=== PATIENT | female | born 1955 | race Caucasian/White ===

== ENCOUNTER 2019-09-03 09:43 | Outpatient (CLI) | payer MEDICARE, SELFPAY ==
[2019-09-03 10:14] LABS: Basophils # 0.1 10^3/uL (0.0-0.1); Basophils % 0.6 %; Eosinophils # 0.3 10^3/uL (0.0-0.8); Eosinophils % 3.6 %; Hemoglobin 13.6 g/dL (11.5-15.3); Lymphocytes # 1.3 10^3/uL (0.8-4.8); Lymphocytes % 15.7 %; Mean Corpuscular HGB Conc 32.4 g/dL (30.0-36.0); Mean Corpuscular Hemoglobin 30.5 pg (28.0-34.0); Mean Corpuscular Volume 94.2 fL (81-99); Mean Platelet Volume 8.7 fL (7.4-10.4); Monocytes # 0.6 10^3/uL (0.2-0.9); Monocytes % 7.1 %; Neutrophils # 5.8 10^3/uL (1.8-7.7); Neutrophils % 72.7 %; Nucleated Red Blood Cells % 0 %; Platelet Count 344 10^3/cmm (130-400); Red Blood Count 4.46 10^6/uL (4.1-5.3); Red Cell Distribution Width 12.8 % (12.1-15.1)
[2019-09-03 10:32] LABS: Alanine Aminotransferase 13 U/L (0-33); Albumin Level 3.9 g/dL (3.5-5.2); Alkaline Phosphatase 195 IU/L (35-105); Anion Gap 19.8 (5-19); Aspartate Amino Transferase 25 U/L (0-32); Blood Urea Nitrogen 16 mg/dL (8-23); Calcium 10.1 mg/Dl (8.8-10.2); Carbon Dioxide 27 mmol/L (22-29); Chloride 100 mmol/L (98-107); Globulin 3.9 g/dL (1.3-4.6); Glomerular Filtration Rate 83.7 mL/min (90-130); Glucose 139 mg/dL (74-106); Potassium 3.8 mmol/L (3.5-5.1); Sodium 143 mmol/L (136-145); Total Bilirubin 0.2 mg/dL (0.15-1.2); Total Protein 7.8 g/dL (6.6-8.7)
--- NOTE | 2019-09-03 17:08 | ONC FU_ITS ---
Dr. Johnston follow up note Patient: Raúl Malagon Unit #: [id number]: [id number] Dicatated By: Ivon Johnston M.D.Date of Visit:Sep 03, 2019 Onc Med Follow-up/Prog Note History of Present Illness: Mr. 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, original site not clear but CT PET scan done at the time of diagnosis consistent with base of tongue/vallecula, with biopsy-proven lung metastases Whereas base of the tongue biopsy done on 04/19/2018 showed benign lymphoid tissue with reactive follicular hyperplasia, and benign squamous mucosa And right upper lobe lung biopsy done on 03/30/2018 showed poorly differentiated squamous cell carcinoma compatible with nonkeratinizing squamous carcinoma Left cervical lymph node FNA was done on 03/30/2018 showed non-small cell carcinoma In May 2018 she was started on combined chemoradiation, to the oropharynx and including left metastatic cervical lymph node. Initially with low-dose cisplatin/erbitux, but patient did develop erbitux reaction, requiring short hospital stay because of chest pain. At that time her chemotherapy was changed to single agent carboplatin concurrent with radiation therapy given on May 24, May 31 and 06/07/2018 Follow-up CT scan of the chest done on 09/05/2018 showed slow progression of pulmonary disease but patient was asymptomatic and she was offered single agent nivolumab on 09/07/2018, initially she was receiving every other week the later on changed to every month and last dose was given, as per patient in October [address] scan of chest done on 11/08/2018 showed mixed response as her right lung metastases was increasing in size, she was referred to radiation oncology, as per patient his CBC of 15 doses of radiation to her right chest in October 2018. And then in the December 2018 she moved to [facility] and Follow-up CT PET scan done on 02/23/2019 showed there are multiple bilateral malignant pulmonary nodules, predominantly in the upper lobes, representing active metastatic disease. Index right upper lobe nodule measuring 1.5 x 1.9 cm with SUV of 21 and index medial left upper lobe nodule measures 1.5 cm in diameter and has SUV of 17.3. No other abnormality seen Patient was recommended to continue with nivolumab , biweekly. But patient never came back as per patient she had transportation problem as she could not get new tag for her car and she was called and at that time our office was informed that she is not interested to continue immunotherapy rather prefer observation. Came for follow-up, complaining of left upper neck pain. But no ear discharge, no fever or chills, no trauma to her neck, no dysphagia, no nausea vomiting, no diarrhea constipation, no hemoptysis or hematemesis, appetite is good. Medications: Allergy Relief 1 (4 mg) Tablet Oral daily, Aspirin 1 Tablet (of 81 mg) Oral daily, Biotin 1 Capsule (of 1000 mg) Oral daily, Centrum Silver 50+Women 1 Tablet Oral daily, HYDROcodone-Acetaminophen 1 Tablet (of 10-325 mg) Oral t.i.d. PRN, Metoprolol Tartrate 1 Tablet (of 50 mg) Oral b.i.d., Sertraline HCl 1 Tablet (of 50 mg) Oral daily Allergies: Ampicillin, Cetuximab, Penicillins, and Sulfa Antibiotics. Review of Systems: Constitutional - Appetite is fair and weight has increased. No fever, chills, hot flashes, or night sweats. Energy level is poor, ENMT - Positive for sinus congestion/drainage. No mouth sores. No sore throat. Positive for difficulty swallowing, Hematologic/Lymphatic - No abnormal bruising or bleeding, Respiratory - No shortness of breath. No cough. No pleuritic pain or hemoptysis, Cardiovascular - Positive for chest pain and discomfort, Gastrointestinal - No nausea or vomiting. No heartburn or acid reflux. No diarrhea or constipation. No blood in the stool or black stools, Genitourinary (F) - Positive for incontinence and difficulty starting stream, Musculoskeletal - Positive for joint and neck. Pt states that Dr. Sánchez recently increased her pain medication but she does not notice much improvement, Neurologic - No headache. Positive for dizziness. No numbness/paresthesias or other focal neurologic symptoms, Psychiatric - Positive for depression and anxiety. Vital Signs: Performed on Sep 03, 2019 11:00 Height - 66.00 in Weight - 142.0 lbs (LOW) BSA - 1.73 sq.m BMI - 22.92 Temperature - 98.7 F Pulse - 65 /min Respiration - 18 /min BP - 110/66 mm(hg) O2 Sat - 97 % Pain - 6 Performance Status: 1 - No physically strenuous activity, but ambulatory and able to carry out light or sedentary work (e.g. office work, light house work). (ECOG) Physical Examination: ENMT - . No oral exudates, ulcers, masses, thrush or mucositis. Oropharynx clear. Tongue normal, Neck - Supple . No jugular venous distension, Respiratory - Lungs are clear to auscultation without rhonchi or wheezing.Mild tenderness in left upper neck but no definite swelling noted, Cardiovascular - Regular rate and rhythm of heart, Abdomen - Non-tender, non-distended, . Good bowel sounds. No guarding or rebound tenderness. No pulsatile masses, Extremities - no edema. Lab/Imaging: Test performed on Mar 08, 2019 08:58 Sodium 144 mmol/L Potassium 3.6 mmol/L Chloride 102 mmol/L CO2 30 mmol/L Anion Gap 15.6 BUN 8 mg/dL Creatinine 0.8 mg/dL Cr Clearance (Est) 72.39 mL/min eGFR 72.0 mL/min Glucose 139 mg/dl Calcium 9.2 mg/dL Protein, Total 7.4 g/dL Albumin 4.4 g/dL Globulin 3.0 gm/dL Bilirubin, Total 0.4 mg/dL ALT (SGPT) 7 U/L AST (SGOT) 20 U/L Alkaline Phosphatase 152 IU/L WBC 4.5 /cmm RBC 4.55 10 6/cmm HGB 14.2 g/dl HCT 41.2 % MCV 90.7 /cmm MCH 31.3 pg MCHC 34.5 g/dl RDW 13.9 % Platelet Count 258 10 3/cmm MPV 6.8 fl Neutrophils 2.7 10 3/cmm Lymphocytes 1.0 10 3/cmm Monocytes 0.4 10 3/cmm Eosinophils 0.3 10 3/cmm Basophils 0.0 10 3/cmm Neutrophil % 60.6 % Lymphocyte % 22.3 % Monocyte % 9.7 % Eosinophil % 6.6 % Basophils % 0.8 % Impression: 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 CT PET scan done the time of diagnosis in March 2018 consistent with disease from BOT/vallecule and biopsy from left anterior neck lymph node showed non-small cell carcinoma and biopsy of right upper lobe lung done on 03/30/2018 confirmed poorly differentiated squamous cell carcinoma Status post combined chemoradiation therapy to the oropharynx primary and left cervical metastatic lymph node, initially started on low-dose cisplatin/erbitux but erbitux was discontinued because of related allergic reaction requiring short hospital stay Later on switched to weekly carboplatin concurrent with radiation therapy on 05/24/2018, 05/31/2018 and 06/07/2018 and radiotherapy completed on 07/12/2018 CT scan of neck was done on 07/23/2018 showed left neck mass size is similar but too early to really to perry radiation impact and CT scan of chest showed multiple lung nodules largest being 2 cm size, stable with one new and 2 small enlarging nodules all less than 1 cm. Follow-up CT scan of chest done on 09/05/2018 showed slow progression of pulmonary disease, but patient remained asymptomatic at that time role of immunotherapy with nivolumab was discussed and patient agreed, she was started on every other week later on switched to every month, as per patient last dose was given in October that time her follow-up CT scan of chest done on 11/08/2018 showed mixed response e.g. enlargement of right lung metastases, as per patient she was referred to radiation oncology and she received 15 doses of radiation to right chest Follow-up CT PET scan done on 02/23/2019 showed there are multiple bilateral malignant pulmonary nodules, predominantly in the upper lobes, representing active metastatic disease. An index right upper lobe nodule measured 1.5 x 1.9 cm with SUV of 21, and index medial left upper lobe nodule measuring 1.5 cm in diameter has SUV of 17.3. 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 As per patient initially at the time of diagnosis she had similar symptoms. At this point we'll consider follow-up CT PET scan to assess disease status as patient did not follow our recommendations to continue with immunotherapy with nivolumab . Patient will return to clinic after this CT PET scan done. Signed By: Ivon Johnston M.D. <<Signature on File>>
== END 2019-09-03 09:44 | disposition home or self-care (01) ==
LOC: ONCMED 09:54
PROVIDERS: Family Provider Family Medicine; Visit Provider Internal Medicine Hematology & Oncology
DX: C01 Malignant neoplasm of base of tongue (principal); C78.01 Secondary malignant neoplasm of right lung; C78.02 Secondary malignant neoplasm of left lung; G89.3 Neoplasm related pain (acute) (chronic); J43.9 Emphysema, unspecified; F17.210 Nicotine dependence, cigarettes, uncomplicated; I25.10 Atherosclerotic heart disease of native coronary artery without angina pectoris; Z79.82 Long term (current) use of aspirin; Z79.891 Long term (current) use of opiate analgesic; Z92.3 Personal history of irradiation; Z92.21 Personal history of antineoplastic chemotherapy; Z95.5 Presence of coronary angioplasty implant and graft
CPT/HCPCS: 80053; 85025; G0463

== ENCOUNTER 2019-09-13 09:00 | Outpatient (CLI) | payer MEDICARE, SELFPAY ==
--- NOTE | 2019-09-13 09:10 | CT_ITS ---
WS: [id number] CT CHEST, ABDOMEN, AND PELVIS TECHNIQUE: Contrast-enhanced CT of the chest, abdomen, and pelvis with coronal and sagittal reformatt ed images. CLINICAL INFORMATION: METASTATIC HEAD NECK CANCER COMPARISON: CT chest November 08, 2018 and PET/CT February 23, 2019. CT chest abdomen September 05, 2018 DLP: 1130.[address] scans at [facility] use at least one of these dose optimization techniques: automat ed exposure control; mA and/or kV adjustment per patient size (includes targeted exams where dose is matched to clinical indication); or iterative reconstruction. CT CHEST: Numerous large metastatic nodules in both lungs progressed since the prior 2 examinations. Large placido edly progressed left upper lobe mass measuring 6.1 x 4.7 CM. Progressed left lower lobe nodule measur ing 3.1 x 2.6 cm compared to 8 mm previous. Large lobulated right upper lobe nodule today measures 4. 4 x 2.2 cm which has changed configuration. Large right upper partially cavitary nodule abutting the middle mediastinum has markedly progressed today measuring 4.1 x 2.6 cm. Additional large mass left upper lobe medially measuring 2.9 x 2.5 CM. Normal caliber thoracic aorta. Proximal main pulmonary arteries are normal. Prominent pretracheal lym ph node unchanged. No axillary lymphadenopathy. No hilar lymphadenopathy. CT ABDOMEN AND PELVIS: Liver is normal. Tiny low-attenuation lesion likely hepatic cyst. Portal vein and splenic vein are no rmal. Normal gallbladder. Normal spleen. Normal GE junction. Adrenal glands are normal. Normal renal parenchymal enhancement. Tiny renal cysts. Normal caliber abdominal aorta. Aortic calcification. Norm al sigmoid colon. Diverticulosis. No evidence of acute diverticulitis. No pelvic or inguinal lymphade nopathy. CT/CT chest abd pel w con* IMPRESSION: 1. Progressed metastatic disease in the chest with multiple enlarged intrapare nchymal pulmonary nodules. 2. Largest nodule in the left upper lobe measuring 4.7 x 6.2 cm. 3. Largest nodules in the right lung in the right upper lobe measuring 4.1 x 2 .6 cm and 2.2 x 4.4 CM. 4. No evidence of metastatic disease in the abdomen or pelvis. 5. Enlarged pretracheal lymph node unchanged.
[2019-09-13] MEDS: iohexol 300 mg/mL 50 mL Btl PO (09:29)
[2019-09-13] MEDS: iohexol 300 mg/mL 100 mL Btl 95 ML IV (11:04)
== END 2019-09-13 09:01 | disposition home or self-care (01) ==
LOC: CT 09:07
PROVIDERS: Family Provider Family Medicine; PCP Family Medicine; Visit Provider Internal Medicine Hematology & Oncology
DX: C76.0 Malignant neoplasm of head, face and neck (principal); R91.8 Other nonspecific abnormal finding of lung field; R59.9 Enlarged lymph nodes, unspecified
CPT/HCPCS: 71260; 74177

== ENCOUNTER 2019-09-17 13:51 | Outpatient (CLI) | payer MEDICARE, SELFPAY ==
[2019-09-17 14:45] LABS: Basophils # 0.1 10^3/uL (0.0-0.1); Basophils % 0.7 %; Eosinophils # 0.3 10^3/uL (0.0-0.8); Eosinophils % 4.5 %; Hematocrit 41.1 % (37.0-47.0); Lymphocytes # 2.1 10^3/uL (0.8-4.8); Mean Corpuscular HGB Conc 31.6 g/dL (30.0-36.0); Mean Corpuscular Hemoglobin 29.8 pg (28.0-34.0); Mean Corpuscular Volume 94.3 fL (81-99); Mean Platelet Volume 8.8 fL (7.4-10.4); Monocytes # 0.6 10^3/uL (0.2-0.9); Monocytes % 8.6 %; Neutrophils # 3.8 10^3/uL (1.8-7.7); Neutrophils % 55.1 %; Nucleated Red Blood Cells % 0 %; Platelet Count 404 10^3/cmm (130-400); Red Blood Count 4.36 10^6/uL (4.1-5.3); Red Cell Distribution Width 12.8 % (12.1-15.1); White Blood Count 6.9 10^3/uL (4.0-10.0)
[2019-09-17 15:09] LABS: Alanine Aminotransferase 15 U/L (0-33); Alkaline Phosphatase 193 IU/L (35-105); Aspartate Amino Transferase 27 U/L (0-32); Blood Urea Nitrogen 10 mg/dL (8-23); Calcium 9.7 mg/dL (8.5-10.5); Carbon Dioxide 28 mmol/L (22-29); Chloride 100 mmol/L (98-107); Sodium 142 mmol/L (136-145); Total Bilirubin 0.2 mg/dL (0.15-1.2)
[2019-09-18 08:55] LABS: Glucose 88 mg/dL (65-115)
== END 2019-09-17 13:52 | disposition home or self-care (01) ==
PROVIDERS: Family Provider Family Medicine; PCP Family Medicine; Visit Provider Internal Medicine Hematology & Oncology
DX: C01 Malignant neoplasm of base of tongue (principal); C77.0 Secondary and unspecified malignant neoplasm of lymph nodes of head, face and neck; C78.01 Secondary malignant neoplasm of right lung; C79.02 Secondary malignant neoplasm of left kidney and renal pelvis; J43.9 Emphysema, unspecified; I25.10 Atherosclerotic heart disease of native coronary artery without angina pectoris; F32.9 Major depressive disorder, single episode, unspecified; G89.3 Neoplasm related pain (acute) (chronic); F17.210 Nicotine dependence, cigarettes, uncomplicated; Z79.82 Long term (current) use of aspirin; Z79.891 Long term (current) use of opiate analgesic; Z92.21 Personal history of antineoplastic chemotherapy; Z92.3 Personal history of irradiation; Z92.25 Personal history of immunosuppression therapy
CPT/HCPCS: 80053; 85025; 99214

== ENCOUNTER 2019-09-27 10:26 | Outpatient (CLI) | payer MEDICARE, SELFPAY ==
--- NOTE | 2019-09-27 13:08 | ONC FU_ITS ---
Dr. Johnston follow up note Patient: Raúl Malagon Unit #: [id number]: [id number] Dicatated By: Ivon Johnston M.D.Date of Visit:Sep 27, 2019 Onc Med Follow-up/Prog Note History of Present Illness: Mr. 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, original site not clear but CT PET scan done at the time of diagnosis consistent with base of tongue/vallecula, with biopsy-proven lung metastases Whereas base of the tongue biopsy done on 04/19/2018 showed benign lymphoid tissue with reactive follicular hyperplasia, and benign squamous mucosa And right upper lobe lung biopsy done on 03/30/2018 showed poorly differentiated squamous cell carcinoma compatible with nonkeratinizing squamous carcinoma Left cervical lymph node FNA was done on 03/30/2018 showed non-small cell carcinoma In May 2018 she was started on combined chemoradiation, to the oropharynx and including left metastatic cervical lymph node. Initially with low-dose cisplatin/erbitux, but patient did develop erbitux reaction, requiring short hospital stay because of chest pain. At that time her chemotherapy was changed to single agent carboplatin concurrent with radiation therapy given on May 24, May 31 and 06/07/2018 Follow-up CT scan of the chest done on 09/05/2018 showed slow progression of pulmonary disease but patient was asymptomatic and she was offered single agent nivolumab on 09/07/2018, initially she was receiving every other week the later on changed to every month and last dose was given, as per patient in October [address] scan of chest done on 11/08/2018 showed mixed response as her right lung metastases was increasing in size, she was referred to radiation oncology, as per patient his CBC of 15 doses of radiation to her right chest in October 2018. And then in the December 2018 she moved to [facility] and Follow-up CT PET scan done on 02/23/2019 showed there are multiple bilateral malignant pulmonary nodules, predominantly in the upper lobes, representing active metastatic disease. Index right upper lobe nodule measuring 1.5 x 1.9 cm with SUV of 21 and index medial left upper lobe nodule measures 1.5 cm in diameter and has SUV of 17.3. No other abnormality seen Patient was recommended to continue with nivolumab , biweekly. But patient never came back as per patient she had transportation problem as she could not get new tag for her car and she was called and at that time our office was informed that she is not interested to continue immunotherapy rather prefer observation. Follow-up CT scan of chest abdomen pelvis was done on 09/13/2019 as insurance did not allow PET scan It showed numerous large metastatic nodules in both lungs progressed since prior examinations. Large markedly progressed left upper lobe mass measures 6.1 x 4.7 cm. Progressed left lower lobe nodule measuring 3.1 x 2.6 cm compared to 8 mm previously. Large lobulated right upper lobe nodule measures 4.4 x 2.2 cm. Large right upper lobe partially cavitating nodule abutting middle mediastinum has markedly progress size 4.1 x 2.6 cm. Additionally large left upper lobe medially measuring 2.9 x 2.5 cm. Liver is normal. No other changes seen and abdomen. Came for follow-up, denies any specific complaints, no fever or chills, no nausea vomiting no diarrhea constipation no hemoptysis or hematemesis. Medications: Allergy Relief 1 (4 mg) Tablet Oral daily, Aspirin 1 Tablet (of 81 mg) Oral daily, Biotin 1 Capsule (of 1000 mg) Oral daily, Centrum Silver 50+Women 1 Tablet Oral daily, HYDROcodone-Acetaminophen 1 Tablet (of 10-325 mg) Oral t.i.d. PRN, Metoprolol Tartrate 1 Tablet (of 50 mg) Oral b.i.d., Sertraline HCl 1 Tablet (of 50 mg) Oral daily Allergies: Ampicillin, Cetuximab, Penicillins, and Sulfa Antibiotics. Review of Systems: Constitutional - Appetite is fair and weight has increased. No fever, chills, hot flashes, or night sweats. Energy level is fair today, ENMT - No sinus congestion/drainage. No mouth sores. No sore throat. Positive for occassional difficulty swallowing, Hematologic/Lymphatic - No abnormal bruising or bleeding, Respiratory - No shortness of breath. No cough. No pleuritic pain or hemoptysis, Cardiovascular - Negative for chest pain and discomfort, Gastrointestinal - No nausea or vomiting. No heartburn or acid reflux. No diarrhea or constipation. No blood in the stool or black stools, Genitourinary (F) - Positive for incontinence and difficulty starting stream, Musculoskeletal - Positive for joint and neck. Pt states that Dr. Sánchez recently increased her pain medication but she does not notice much improvement, Neurologic - No headache. Positive for dizziness. No numbness/paresthesias or other focal neurologic symptoms, Psychiatric - Positive for depression and anxiety. Vital Signs: Performed on Sep 27, 2019 11:18 Height - 66.00 in Weight - 143.0 lbs (HIGH) BSA - 1.73 sq.m BMI - 23.08 Temperature - 98.0 F (LOW) Pulse - 62 /min Respiration - 20 /min BP - 122/67 mm(hg) O2 Sat - 98 % Pain - 6 Performance Status: 0 - Fully active, able to carry on all predisease activities without restrictions. (ECOG) Physical Examination: ENMT - No oral exudates, ulcers, masses, thrush or mucositis. Oropharynx clear. Tongue normal, Respiratory - Lungs are clear to auscultation without rhonchi or wheezing, Cardiovascular - Regular rate and rhythm of heart, Abdomen - Non-tender, non-distended, Good bowel sounds. No guarding or rebound tenderness. No pulsatile masses, Extremities - no edema. Lab/Imaging: Test performed on Sep 17, 2019 14:00 Sodium 142 mmol/L Potassium 4.0 mmol/L Chloride 100 mmol/L CO2 28 mmol/L Anion Gap 18.0 BUN 10 mg/dL Creatinine 0.6 mg/dL Cr Clearance (Est) 93.7800 mL/min eGFR 100.0 mL/min Glucose 88 mg/dL Calcium 9.7 mg/dL Protein, Total 8.0 g/dL Albumin 4.0 g/dL Globulin 4.0 g/dL Bilirubin, Total 0.2 mg/dL ALT (SGPT) 15 U/L AST (SGOT) 27 U/L Alkaline Phosphatase 193 IU/L WBC 6.9 10 3/uL RBC 4.36 10 6/uL HGB 13.0 g/dL HCT 41.1 % MCV 94.3 fL MCH 29.8 pg MCHC 31.6 g/dL RDW 12.8 % Platelet Count 404 10 3/cmm MPV 8.8 fL Neutrophils 3.8 10 3/uL Lymphocytes 2.1 10 3/uL Monocytes 0.6 10 3/uL Eosinophils 0.3 10 3/uL Basophils 0.1 10 3/uL Neutrophil % 55.1 % Lymphocyte % 31.0 % Monocyte % 8.6 % Eosinophil % 4.5 % Basophils % 0.7 % Impression: 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 CT PET scan done the time of diagnosis in March 2018 consistent with disease from BOT/vallecule and biopsy from left anterior neck lymph node showed non-small cell carcinoma and biopsy of right upper lobe lung done on 03/30/2018 confirmed poorly differentiated squamous cell carcinoma Status post combined chemoradiation therapy to the oropharynx primary and left cervical metastatic lymph node, initially started on low-dose cisplatin/erbitux but erbitux was discontinued because of related allergic reaction requiring short hospital stay Later on switched to weekly carboplatin concurrent with radiation therapy on 05/24/2018, 05/31/2018 and 06/07/2018 and radiotherapy completed on 07/12/2018 CT scan of neck was done on 07/23/2018 showed left neck mass size is similar but too early to really to perry radiation impact and CT scan of chest showed multiple lung nodules largest being 2 cm size, stable with one new and 2 small enlarging nodules all less than 1 cm. Follow-up CT scan of chest done on 09/05/2018 showed slow progression of pulmonary disease, but patient remained asymptomatic at that time role of immunotherapy with nivolumab was discussed and patient agreed, she was started on every other week later on switched to every month, as per patient last dose was given in October that time her follow-up CT scan of chest done on 11/08/2018 showed mixed response e.g. enlargement of right lung metastases, as per patient she was referred to radiation oncology and she received 15 doses of radiation to right chest Follow-up CT PET scan done on 02/23/2019 showed there are multiple bilateral malignant pulmonary nodules, predominantly in the upper lobes, representing active metastatic disease. An index right upper lobe nodule measured 1.5 x 1.9 cm with SUV of 21, and index medial left upper lobe nodule measuring 1.5 cm in diameter has SUV of 17.3. 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 So other option was to consider another immunotherapy drug pembrolizumab but not sufficient data to prove whether it is effective if patient progressed done another immunotherapy. Third option was considering chemotherapy plus immunotherapy e.g. pembrolizumab plus carboplatin/5-FU or Taxol but patient is reluctant to consider multiple drugs because of her past experience with the chemotherapy. And the last option was considered chemotherapy alone doublet versus single agent but patient agreed for single agent so we will consider Abraxane 100 mg weekly day 1, 8 and 15 and repeat 28 days plan to give [address] PET scan if this is response then continue if stable disease then add pembrolizumab. All the side effect possible benefits associated with Abraxane including but not limited to bone marrow suppression, nausea vomiting, hair loss were discussed further teaching will be done by chemotherapy nurse. We'll obtain approval from her insurance prior to the treatment and then patient will return to clinic 1 week after chemotherapy is initiated with CBC CMP Signed By: Ivon Johnston M.D. <<Signature on File>>
== END 2019-09-27 10:27 | disposition home or self-care (01) ==
LOC: ONCMED 10:28
PROVIDERS: Family Provider Family Medicine; PCP Family Medicine; Visit Provider Internal Medicine Hematology & Oncology
DX: C01 Malignant neoplasm of base of tongue (principal); C78.01 Secondary malignant neoplasm of right lung; C77.0 Secondary and unspecified malignant neoplasm of lymph nodes of head, face and neck; C78.02 Secondary malignant neoplasm of left lung; J43.9 Emphysema, unspecified; F17.210 Nicotine dependence, cigarettes, uncomplicated; I25.10 Atherosclerotic heart disease of native coronary artery without angina pectoris; Z95.5 Presence of coronary angioplasty implant and graft; F32.9 Major depressive disorder, single episode, unspecified; G89.3 Neoplasm related pain (acute) (chronic); Z79.891 Long term (current) use of opiate analgesic; Z79.82 Long term (current) use of aspirin; Z92.3 Personal history of irradiation; Z92.25 Personal history of immunosuppression therapy
CPT/HCPCS: 99214

== ENCOUNTER 2019-10-07 05:21 | Outpatient (RCR) | payer MEDICARE, SELFPAY ==
[2019-10-04 14:41] LABS: Basophils % 0.7 %; Eosinophils # 0.3 10^3/uL (0.0-0.8); Eosinophils % 5.1 %; Hematocrit 39.9 % (37.0-47.0); Hemoglobin 12.3 g/dL (11.5-15.3); Lymphocytes # 1.4 10^3/uL (0.8-4.8); Lymphocytes % 24.7 %; Mean Corpuscular HGB Conc 30.8 g/dL (30.0-36.0); Mean Corpuscular Hemoglobin 29.4 pg (28.0-34.0); Mean Corpuscular Volume 95.2 fL (81-99); Mean Platelet Volume 9.3 fL (7.4-10.4); Monocytes # 0.4 10^3/uL (0.2-0.9); Monocytes % 7.6 %; Neutrophils # 3.4 10^3/uL (1.8-7.7); Neutrophils % 61.5 %; Nucleated Red Blood Cells % 0 %; Platelet Count 357 10^3/cmm (130-400); Red Blood Count 4.19 10^6/uL (4.1-5.3); White Blood Count 5.5 10^3/uL (4.0-10.0)
[2019-10-04 15:17] LABS: Alanine Aminotransferase 11 U/L (0-33); Albumin Level 3.6 g/dL (3.5-5.2); Alkaline Phosphatase 183 IU/L (35-105); Anion Gap 17.3 (5-19); Aspartate Amino Transferase 24 U/L (0-32); Blood Urea Nitrogen 12 mg/dL (8-23); Calcium 9.9 mg/dL (8.5-10.5); Carbon Dioxide 28 mmol/L (22-29); Chloride 100 mmol/L (98-107); Glucose 182 mg/dL (65-115); Potassium 4.3 mmol/L (3.5-5.1); Sodium 141 mmol/L (136-145); Total Bilirubin 0.2 mg/dL (0.15-1.2); Total Protein 7.6 g/dL (6.6-8.7)
== END 2019-10-12 23:59 | disposition home or self-care (01) ==
LOC: ONCMED 05:21
PROVIDERS: Family Provider Family Medicine; PCP Family Medicine; Visit Provider Internal Medicine Hematology & Oncology
DX: Z51.11 Encounter for antineoplastic chemotherapy (principal); C76.0 Malignant neoplasm of head, face and neck
CPT/HCPCS: 80053; 85025; 96367; 96413; J1100; J1200; J1453; J2469; J3490; J9264

== ENCOUNTER 2019-11-06 05:42 | Outpatient (RCR) | payer MEDICARE, SELFPAY ==
[2019-10-14 12:23] LABS: Basophils % 0.2 %; Eosinophils # 0.3 10^3/uL (0.0-0.8); Eosinophils % 5.8 %; Hematocrit 37.9 % (37.0-47.0); Lymphocytes # 1.2 10^3/uL (0.8-4.8); Lymphocytes % 22.1 %; Mean Corpuscular HGB Conc 31.7 g/dL (30.0-36.0); Mean Corpuscular Hemoglobin 28.5 pg (28.0-34.0); Mean Platelet Volume 8.6 fL (7.4-10.4); Monocytes # 0.3 10^3/uL (0.2-0.9); Neutrophils # 3.5 10^3/uL (1.8-7.7); Neutrophils % 65.5 %; Nucleated Red Blood Cells % 0 %; Platelet Count 332 10^3/cmm (130-400); Red Blood Count 4.21 10^6/uL (4.1-5.3); Red Cell Distribution Width 13.1 % (12.1-15.1); White Blood Count 5.3 10^3/uL (4.0-10.0)
[2019-10-14 13:17] LABS: Alanine Aminotransferase 10 U/L (0-33); Albumin Level 3.9 g/dL (3.5-5.2); Alkaline Phosphatase 165 IU/L (35-105); Anion Gap 16.1 (5-19); Aspartate Amino Transferase 17 U/L (0-32); Blood Urea Nitrogen 7 mg/dL (8-23); Calcium 9.6 mg/dL (8.5-10.5); Carbon Dioxide 26 mmol/L (22-29); Chloride 101 mmol/L (98-107); Globulin 3.2 g/dL (1.3-4.6); Glucose 209 mg/dL (65-115); Potassium 4.1 mmol/L (3.5-5.1); Sodium 139 mmol/L (136-145); Total Bilirubin 0.3 mg/dL (0.15-1.2); Total Protein 7.1 g/dL (6.6-8.7)
[2019-10-14] MEDS: sodium chloride 0.9% 250 ML 75 ML IV (14:40)
--- NOTE | 2019-10-19 17:48 | ONC FU_ITS ---
[facility] Patient Note Patient: Raúl Malagon Unit #: [id number]: [id number] Dictated By: Padma AndresDate of Visit: Oct 14, 2019 Onc MED Follow-Up/Prog Note Chief Complaint: Metastatic head and neck cancer with metastases to the lungs (biopsy-proven) History of Present Illness: Mrs. 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 Whereas base of the tongue biopsy done on 04/19/2018 showed benign lymphoid tissue with reactive follicular hyperplasia, and benign squamous mucosa And right upper lobe lung biopsy done on 03/30/2018 showed poorly differentiated squamous cell carcinoma compatible with nonkeratinizing squamous carcinoma Left cervical lymph node FNA was done on 03/30/2018 showed non-small cell carcinoma In May 2018, she was started on combined chemoradiation, to the oropharynx and including left metastatic cervical lymph node. Initially with low-dose cisplatin/erbitux, but patient did develop erbitux reaction, requiring short hospital stay because of chest pain. At that time her chemotherapy was changed to single agent carboplatin concurrent with radiation therapy given on May 24, May 31 and 06/07/2018 Follow-up CT scan of the chest done on 09/05/2018 showed slow progression of pulmonary disease but patient was asymptomatic and she was offered single agent nivolumab on 09/07/2018, initially she was receiving every other week the later on changed to every month and last dose was given, as per patient in October [address] scan of chest done on 11/08/2018 showed mixed response as her right lung metastases was increasing in size, she was referred to radiation oncology. She completed 15 doses of radiation to her right chest in October 2018. In December 2018 she moved to [facility] and Follow-up CT PET scan done on 02/23/2019 showed there are multiple bilateral malignant pulmonary nodules, predominantly in the upper lobes, representing active metastatic disease. Index right upper lobe nodule measuring 1.5 x 1.9 cm with SUV of 21 and index medial left upper lobe nodule measures 1.5 cm in diameter and has SUV of 17.3. No other abnormality seen Patient was recommended to continue with nivolumab , biweekly. But patient never came back as per patient she had transportation problem as she could not get new tag for her car and she was called and at that time our office was informed that she is not interested to continue immunotherapy rather prefer observation. Follow-up CT scan of chest abdomen pelvis was done on 09/13/2019 as insurance did not allow PET scan. It showed numerous large metastatic nodules in both lungs progressed since prior examinations. Large markedly progressed left upper lobe mass measures 6.1 x 4.7 cm. Progressed left lower lobe nodule measuring 3.1 x 2.6 cm compared to 8 mm previously. Large lobulated right upper lobe nodule measures 4.4 x 2.2 cm. Large right upper lobe partially cavitating nodule abutting middle mediastinum has markedly progress size 4.1 x 2.6 cm. Additionally large left upper lobe medially measuring 2.9 x 2.5 cm. Liver is normal. No other changes seen and abdomen. Ms. Malagon is here today for follow-up. She is due for week 2 Abraxane. She states overall she feels that she is doing pretty good. She has had some pain in her right side that feels sharp and poking at times. She states she had an episode of a frontal headache with some double vision but that has resolved. It occurred once. She has had no further recurrence of the headache. She states her appetite is fair. She has had no fever or chills. She denies any mouth sores sore throat or difficulty swallowing. She did have a urinalysis on Monday at [facility] and has not heard results on that. She was having UTI symptoms which are still there. She states this frequency and burning. She has not noted any hematuria. She denies any peripheral neuropathy. She states her activity is down a little for her but overall she feels good and can do all of her ADLs without assistance. She denies any diarrhea or constipation. She has had no lower extremity edema. Her ECOG is 1. Past Medical History: Chronic obstructive pulmonary disease Coronary artery disease Depression Past Surgical History: Abdominal exploratory laparotomy Appendectomy Cardiac stent Colonoscopy - 2014 Port placement Repair of right toes Right eardrum repair Tonsillectomy Left base/midline tongue biopsy in 2018 - benign Right upper lobe lung biopsy/left neck lymph node fna in 2018 Allergies: Ampicillin, Cetuximab, Penicillins, and Sulfa Antibiotics. Medications: Allergy Relief 1 (4 mg) Tablet Oral daily Aspirin 1 Tablet (of 81 mg) Oral daily Biotin 1 Capsule (of 1000 mg) Oral daily Centrum Silver 50+Women 1 Tablet Oral daily HYDROcodone-Acetaminophen 1 Tablet (of 10-325 mg) Oral t.i.d. PRN Metoprolol Tartrate 1 Tablet (of 50 mg) Oral b.i.d. Sertraline HCl 1 Tablet (of 50 mg) Oral daily Family History: Ms. Malagon's mother at age 78: heart disease. Ms. Malagon's father at age 78: lung cancer, and prostate cancer, and heart disease. Ms. Malagon has 2 brothers: 2 . Ms. Malagon's first brother's agent orange. Another brother's esophageal cancer, and agent orange, and lung cancer. Social History: Ms. Malagon is and she is retired. She is a daily smoker who has smoked 0.5 packs/day for 47 years. Ms. Malagon reports contact with the following hazardous materials: asbestos. She has indicated exposure to the following products: cigarettes. Ms. Malagon reports the following support systems: lives with spouse, significant other, family, or friends, lives in own house, supportive family/friends willing to assist with needs, and adequate transportation available for expected visits. Her diet consists of regular meals. She indicates her activity level as: daily activities. quit smoking in 2005, restarted in 2016. Review Of Symptoms: Genitourinary (F) urinary frequency and burning for 5-6 days. She denies any hematuria. She has had no fever or chills. Integumentary Denies chronic rashes, inflammation, ulcerations or skin changes. Constitutional Denies fevers, chills, night sweats, excessive fatigue or weight loss. Headache after last treatment-gone now. See Above. Eyes Denies significant visual changes. No diplopia. No amaurosis. ENMT Denies changes in hearing, sore throat, mouth sores, difficulty or changes in swallowing ability, and/or sinus drainage. Endocrine No diabetes, thyroid disease or hormone replacement. Denies hot flashes or night sweats. Hematologic/Lymphatic Denies easy bruising or bleeding. The patient denies any tender or palpable lymph nodes. Respiratory Denies dyspnea on exertion, chest pain, cough or hemoptysis. Denies orthopnea. Cardiovascular Denies anginal chest pain, palpitations or orthopnea. Gastrointestinal Denies nausea, vomiting, diarrhea, GI bleeding, or constipation. Denies change in bowel habits and/or stool color, no heartburn or early satiety. Musculoskeletal Denies joint pain, swelling or redness. No decreased range of motion. Neurologic Denies headache, blurred vision, and no areas of focal weakness or numbness. Normal gait. No sensory problems. Psychiatric Denies insomnia, depression, lit or mood swings. Vital Signs: Performed on Oct 14, 2019 13:48 Height - 66.00 in Weight - 142.4 lbs (LOW) BSA - 1.73 sq.m BMI - 22.98 Temperature - 98.0 F (LOW) Pulse - 85 /min Respiration - 17 /min BP - 110/60 mm(hg) O2 Sat - 94 % (LOW) Pain - 6,1 - No physically strenuous activity, but ambulatory and able to carry out light or sedentary work (e.g. office work, light house work). (ECOG) Physical Examination: Constitutional Alert, oriented, no acute distress. Skin pink, warm and dry. Head Normocephalic; atraumatic. Eyes Conjunctivae and sclerae are clear and without icterus. Pupils are reactive and equal. ENMT No oral exudates, ulcers, masses, thrush or mucositis. Oropharynx clear. Tongue normal. Neck Supple without masses or thyromegaly. No jugular venous distension. Hematologic/Lymphatic No petechiae or purpura. No tender or palpable lymph nodes in the cervical or supraclavicular areas. Respiratory Lungs are clear to auscultation without rhonchi or wheezing. Cardiovascular Regular rate and rhythm of heart without murmurs,clicks, gallops or rubs. Abdomen Non-tender, non-distended, no masses or ascites. Good bowel sounds noted in all quads. No guarding or rebound tenderness. No pulsatile masses. Back/Spine Non-tender to palpation. Extremities No visible deformities, no cyanosis, clubbing or edema. Musculoskeletal No tenderness or swelling, normal range of motion without obvious weakness. Integumentary No rashes or lesions. Neurologic No sensory or motor deficits, normal cerebellar function, normal gait. Psychiatric Alert and oriented times three. Coherent speech. Verbalizes understanding of our discussions today. Laboratory:Test performed on Oct 14, 2019 12:10 Sodium 139 mmol/L Potassium 4.1 mmol/L Chloride 101 mmol/L CO2 26 mmol/L Anion Gap 16.1 BUN 7 mg/dL Creatinine 0.6 mg/dL Cr Clearance (Est) 94.4400 mL/min eGFR 100.0 mL/min Glucose 209 mg/dL Calcium 9.6 mg/dL Protein, Total 7.1 g/dL Albumin 3.9 g/dL Globulin 3.2 g/dL Bilirubin, Total 0.3 mg/dL ALT (SGPT) 10 U/L AST (SGOT) 17 U/L Alkaline Phosphatase 165 IU/L WBC 5.3 10 3/uL RBC 4.21 10 6/uL HGB 12.0 g/dL HCT 37.9 % MCV 90.0 fL MCH 28.5 pg MCHC 31.7 g/dL RDW 13.1 % Platelet Count 332 10 3/cmm MPV 8.6 fL Neutrophils 3.5 10 3/uL Lymphocytes 1.2 10 3/uL Monocytes 0.3 10 3/uL Eosinophils 0.3 10 3/uL Basophils 0.0 10 3/uL Neutrophil % 65.5 % Lymphocyte % 22.1 % Monocyte % 6.0 % Eosinophil % 5.8 % Basophils % 0.2 % Impression: 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 CT PET scan done the time of diagnosis in March 2018 consistent with disease from BOT/vallecule and biopsy from left anterior neck lymph node showed non-small cell carcinoma and biopsy of right upper lobe lung done on 03/30/2018 confirmed poorly differentiated squamous cell carcinoma Status post combined chemoradiation therapy to the oropharynx primary and left cervical metastatic lymph node, initially started on low-dose cisplatin/erbitux but erbitux was discontinued because of related allergic reaction requiring short hospital stay Later on switched to weekly carboplatin concurrent with radiation therapy on 05/24/2018, 05/31/2018 and 06/07/2018 and radiotherapy completed on 07/12/2018 CT scan of neck was done on 07/23/2018 showed left neck mass size is similar but too early to really to perry radiation impact and CT scan of chest showed multiple lung nodules largest being 2 cm size, stable with one new and 2 small enlarging nodules all less than 1 cm[address] Follow-up CT scan of chest done on 09/05/2018 showed slow progression of pulmonary disease, but patient remained asymptomatic at that time role of immunotherapy with nivolumab was discussed and patient agreed, she was started on every other week later on switched to every month, as per patient last dose was given in October that time her follow-up CT scan of chest done on 11/08/2018 showed mixed response e.g. enlargement of right lung metastases, as per patient she was referred to radiation oncology and she received 15 doses of radiation to right chest Follow-up CT PET scan done on 02/23/2019 showed there are multiple bilateral malignant pulmonary nodules, predominantly in the upper lobes, representing active metastatic disease. An index right upper lobe nodule measured 1.5 x 1.9 cm with SUV of 21, and index medial left upper lobe nodule measuring 1.5 cm in diameter has SUV of 17.3. 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 Treatment options include either: continue with nivolumab ( but concerning as her initial scan after she was started on nivolumab showed mixed response and then patient continued immunotherapy for some time and then stopped on her own more than 6 months ago). Another option was to consider another immunotherapy drug pembrolizumab but not sufficient data to prove whether it is effective if patient progressed done another immunotherapy. The third option was consider chemotherapy plus immunotherapy e.g. pembrolizumab plus carboplatin/5-FU or Taxol but patient is reluctant to consider multiple drugs because of her past experience with the chemotherapy. The last option considered was chemotherapy alone- doublet versus single agent but patient agreed for single agent so we will consider Abraxane 100 mg weekly day 1, 8 and 15 and repeat 28 days. The current plan is to give [address] PET scan if this is response then continue if stable disease then add pembrolizumab. Plan: 1. Proceed with cycle 1 day 8 Abraxane. 2. Steroid compliance confirmed. 3. Continue current antiemetics as they seem to be working well. 4. Labs from today were reviewed in detail and discussed with Ms. Jose G napoles and a copy was given to her. WBC 5.3, hemoglobin 12.0, platelets 332,000, neutrophils 3500. Creatinine 0.9. Glucose 209 alk phos is improved at 165. 5. We will send in a prescription for Macrobid 100 mg twice daily for 5 days for abnormal UA from [facility]. 6. Mrs. Vesna Ocasio will return in 1 week with CBC CMP for consideration of day 15 of cycle 1. I did request a follow-up to do a for evaluation of her UTI. 7. She was instructed to contact us in interim should questions or problems arise. 8. We will monitor her headache to see if it reoccurs after today. It is possible that it could be the Aloxi we are using for premed for antiemetics. She will let us know if it reoccurs. Signed By: Padma Andres-, AOCNP Ivon Johnston MD <<Signature on File>>
[2019-10-21 11:54] LABS: Basophils % 0.7 %; Eosinophils # 0.4 10^3/uL (0.0-0.8); Eosinophils % 8.4 %; Hematocrit 37.9 % (37.0-47.0); Hemoglobin 11.8 g/dL (11.5-15.3); Lymphocytes # 1.2 10^3/uL (0.8-4.8); Mean Corpuscular HGB Conc 31.1 g/dL (30.0-36.0); Mean Corpuscular Hemoglobin 28.5 pg (28.0-34.0); Mean Corpuscular Volume 91.5 fL (81-99); Mean Platelet Volume 8.9 fL (7.4-10.4); Monocytes # 0.4 10^3/uL (0.2-0.9); Neutrophils # 2.5 10^3/uL (1.8-7.7); Neutrophils % 55.4 %; Nucleated Red Blood Cells % 0 %; Platelet Count 297 10^3/cmm (130-400); Red Blood Count 4.14 10^6/uL (4.1-5.3); Red Cell Distribution Width 13.4 % (12.1-15.1); White Blood Count 4.4 10^3/uL (4.0-10.0)
[2019-10-21 12:16] LABS: Alanine Aminotransferase 10 U/L (0-33); Albumin Level 3.6 g/dL (3.5-5.2); Alkaline Phosphatase 154 IU/L (35-105); Aspartate Amino Transferase 17 U/L (0-32); Blood Urea Nitrogen 8 mg/dL (8-23); Calcium 9.4 mg/dL (8.5-10.5); Carbon Dioxide 26 mmol/L (22-29); Chloride 100 mmol/L (98-107); Globulin 3.5 g/dL (1.3-4.6); Glomerular Filtration Rate 83.7 mL/min (90-130); Glucose 167 mg/dL (65-115); Osmolality Calculated 290 mOsm/kg (285-295); Sodium 140 mmol/L (136-145); Total Bilirubin 0.2 mg/dL (0.15-1.2); Total Protein 7.1 g/dL (6.6-8.7)
[2019-10-21 12:18] LABS: Add Urine Microscopic? YES; Bilirubin Urine Neg (NEGATIVE); Blood Urine Neg (Negative); Glucose Urine UA Norm (Normal); Ketones Urine Negative (Negative); Leukocyte Esterase Urine Trace (Negative); Nitrate Urine Negative (Negative); Protein Urine Neg (Negative); Specific Gravity, Urine 1.015 (1.005-1.030); Urine Appearance Clear (CLEAR); Urine Color Yellow (Yellow); Urobilinogen Urine Norm (Negative); pH Urine 6.5 (5-7)
[2019-10-21 12:22] LABS: Add Urine Culture? No; Bacteria Urine 1+; Hyaline Casts Urine 0-4; Squamous Epithelial Cell Urine 0-4 (0-5); WBC Urine 0-4 /hpf (0-5)
[2019-10-21] MEDS: pantoprazole 40 mg SDV IV (14:14)
[2019-10-21] MEDS: sodium chloride 0.9% 250 ML 1414 ML IV (14:14)
--- NOTE | 2019-10-21 21:36 | ONC FU_ITS ---
[facility] Patient Note Patient: Raúl Malagon Unit #: [id number]: [id number] Dictated By: Padma AndresDate of Visit: Oct 21, 2019 Onc MED Follow-Up/Prog Note Chief Complaint: Metastatic head and neck cancer with metastases to the lungs (biopsy-proven) History of Present Illness: Mrs. 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 Whereas base of the tongue biopsy done on 04/19/2018 showed benign lymphoid tissue with reactive follicular hyperplasia, and benign squamous mucosa And right upper lobe lung biopsy done on 03/30/2018 showed poorly differentiated squamous cell carcinoma compatible with nonkeratinizing squamous carcinoma Left cervical lymph node FNA was done on 03/30/2018 showed non-small cell carcinoma In May 2018, she was started on combined chemoradiation, to the oropharynx and including left metastatic cervical lymph node. Initially with low-dose cisplatin/erbitux, but patient did develop erbitux reaction, requiring short hospital stay because of chest pain. At that time her chemotherapy was changed to single agent carboplatin concurrent with radiation therapy given on May 24, May 31 and 06/07/2018 Follow-up CT scan of the chest done on 09/05/2018 showed slow progression of pulmonary disease but patient was asymptomatic and she was offered single agent nivolumab on 09/07/2018, initially she was receiving every other week the later on changed to every month and last dose was given, as per patient in October [address] scan of chest done on 11/08/2018 showed mixed response as her right lung metastases was increasing in size, she was referred to radiation oncology. She completed 15 doses of radiation to her right chest in October 2018. In December 2018 she moved to [facility]. Follow-up CT PET scan done on 02/23/2019 showed there are multiple bilateral malignant pulmonary nodules, predominantly in the upper lobes, representing active metastatic disease. Index right upper lobe nodule measuring 1.5 x 1.9 cm with SUV of 21 and index medial left upper lobe nodule measures 1.5 cm in diameter and has SUV of 17.3. No other abnormality seen It was recommended that Mrs Lopez continue with nivolumab , biweekly. But patient never came back- as per patient she had transportation problem as she could not get new tag for her car and she was called and at that time our office was informed that she is not interested to continue immunotherapy but preferred observation. She following did come for follow-up on September 03, 2019 at which time she was seen by Dr. Johnston. Follow-up CT scan of chest abdomen pelvis was done on 09/13/2019 as insurance did not allow PET scan. It showed numerous large metastatic nodules in both lungs progressed since prior examinations. Large markedly progressed left upper lobe mass measures 6.1 x 4.7 cm. Progressed left lower lobe nodule measuring 3.1 x 2.6 cm compared to 8 mm previously. Large lobulated right upper lobe nodule measures 4.4 x 2.2 cm. Large right upper lobe partially cavitating nodule abutting middle mediastinum has markedly progress size 4.1 x 2.6 cm. Additionally large left upper lobe medially measuring 2.9 x 2.5 cm. Liver is normal. No other changes seen and abdomen. Ms. Malagon is here today for follow-up. She is due for week cycle 1 day 15 Abraxane. She states overall she feels that she is doing pretty good. She has had some urinary frequency and burning. She has had interimttent nausea but no vomiting. She states it started a night or so after last weeks treatment. She denies any diarrhea since Monday. She did take a Lomotil at that time and that stopped the diarrhea. She does admit to having some acid reflux symptoms. She is had some heartburns and occasionally does take some Tums and that relieves it well. She has not taken any agents daily. She states has had some abdominal discomfort like it is just sore in her lower abdominal area and all quads. She denies any new pain. She has had some intermittent diarrhea as mentioned above but is been controlled. She denies any hematochezia. She denies any fever or chills. She states she has had some mild tenderness. 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 She states her appetite is fair. She denies any peripheral neuropathy. She states her activity is down a little for her but overall she feels good and can do all of her ADLs without assistance. She has had no lower extremity edema. Her ECOG is 1. Past Medical History: Chronic obstructive pulmonary disease Coronary artery disease Depression Past Surgical History: Abdominal exploratory laparotomy Appendectomy Cardiac stent Colonoscopy - 2014 Port placement Repair of right toes Right eardrum repair Tonsillectomy Left base/midline tongue biopsy in 2018 - benign Right upper lobe lung biopsy/left neck lymph node fna in 2018 Allergies: Ampicillin, Cetuximab, Penicillins, and Sulfa Antibiotics. Medications: Allergy Relief 1 (4 mg) Tablet Oral daily Aspirin 1 Tablet (of 81 mg) Oral daily Biotin 1 Capsule (of 1000 mg) Oral daily Centrum Silver 50+Women 1 Tablet Oral daily HYDROcodone-Acetaminophen 1 Tablet (of 10-325 mg) Oral t.i.d. PRN Metoprolol Tartrate 1 Tablet (of 50 mg) Oral b.i.d. Prochlorperazine Maleate 1 Tablet (of 10 mg) Oral q 4 hours PRN Sertraline HCl 1 Tablet (of 50 mg) Oral daily Family History: Ms. Malagon's mother at age 78: heart disease. Ms. Malagon's father at age 78: lung cancer, and prostate cancer, and heart disease. Ms. Malagon has 2 brothers: 2 . Ms. Malagon's first brother's agent orange. Another brother's esophageal cancer, and agent orange, and lung cancer. Social History: Ms. Malagon is and she is retired. She is a daily smoker who has smoked 0.5 packs/day for 47 years. Ms. Malagon reports contact with the following hazardous materials: asbestos. She has indicated exposure to the following products: cigarettes. Ms. Malagon reports the following support systems: lives with spouse, significant other, family, or friends, lives in own house, supportive family/friends willing to assist with needs, and adequate transportation available for expected visits. Her diet consists of regular meals. She indicates her activity level as: daily activities. quit smoking in 2005, restarted in 2015. Review Of Symptoms: Constitutional Denies fevers, chills, night sweats, excessive fatigue or weight loss. Sore in corner of right side of lips. Mouth tender but no lesions. Eyes Denies significant visual changes. No diplopia. No amaurosis. ENMT Denies changes in hearing, sore throat, mouth sores, difficulty or changes in swallowing ability, and/or sinus drainage. Hematologic/Lymphatic Denies easy bruising or bleeding. The patient denies any tender or palpable lymph nodes. Respiratory Denies dyspnea on exertion, chest pain, cough or hemoptysis. Denies orthopnea. Cardiovascular Denies anginal chest pain, palpitations or orthopnea. Gastrointestinal Denies vomiting, GI bleeding, or constipation. Denies change in bowel habits and/or stool color, no heartburn or early satiety. Abdominal soreness in colon . Some intermittent nausea-improved after eating. Diarrhea as above. Genitourinary (F) urinary frequency and burning for 5-6 days. She denies any hematuria. She has had no fever or chills. Musculoskeletal Denies joint pain, swelling or redness. No decreased range of motion. Integumentary Denies chronic rashes, inflammation, ulcerations or skin changes. Neurologic Denies headache, blurred vision, and no areas of focal weakness or numbness. Normal gait. No sensory problems. Psychiatric Denies insomnia, depression, lit or mood swings. Vital Signs: Performed on Oct 21, 2019 13:13 Height - 66.00 in Weight - 144.0 lbs (HIGH) BSA - 1.74 sq.m BMI - 23.24 Temperature - 98.2 F (LOW) Pulse - 81 /min Respiration - 18 /min BP - 123/74 mm(hg) O2 Sat - 94 % (LOW) Pain - 6,1 - No physically strenuous activity, but ambulatory and able to carry out light or sedentary work (e.g. office work, light house work). (ECOG) Physical Examination: Constitutional Alert, oriented, no acute distress. Skin pink, warm and dry. Head Normocephalic; atraumatic. Eyes Conjunctivae and sclerae are clear and without icterus. Pupils are reactive and equal. ENMT No oral exudates, ulcers, masses, thrush or mucositis. Oropharynx clear. Tongue normal. One area of angular kelitis on right side of lips. Neck Supple without masses or thyromegaly. No jugular venous distension. Hematologic/Lymphatic No petechiae or purpura. No tender or palpable lymph nodes in the cervical or supraclavicular areas. Respiratory Lungs are clear to auscultation without rhonchi or wheezing. Cardiovascular Regular rate and rhythm of heart without murmurs,clicks, gallops or rubs. Abdomen Non-tender, non-distended, no masses or ascites. Good bowel sounds noted in all quads. No guarding or rebound tenderness. No pulsatile masses. Back/Spine Non-tender to palpation. Extremities No visible deformities, no cyanosis, clubbing or edema. Musculoskeletal No tenderness or swelling, normal range of motion without obvious weakness. Integumentary No rashes or lesions. Neurologic No sensory or motor deficits, normal cerebellar function, normal gait. Psychiatric Alert and oriented times three. Coherent speech. Verbalizes understanding of our discussions today. Laboratory:Test performed on Oct 21, 2019 11:35 Ua Micro: Hyaline Casts 0-4 Ua Micro: WBC 0-4 /hpf Ua Micro: RBC NONE /hpf Ua Micro: Squam Epith Cells 0-4 Ua Micro: Bacteria 1+ Test performed on Oct 21, 2019 11:24 Sodium 140 mmol/L Potassium 4.0 mmol/L Chloride 100 mmol/L CO2 26 mmol/L Anion Gap 18.0 BUN 8 mg/dL Creatinine 0.7 mg/dL Cr Clearance (Est) 80.9500 mL/min eGFR 83.7 mL/min Glucose 167 mg/dL Calcium 9.4 mg/dL Protein, Total 7.1 g/dL Albumin 3.6 g/dL Globulin 3.5 g/dL Bilirubin, Total 0.2 mg/dL ALT (SGPT) 10 U/L AST (SGOT) 17 U/L Alkaline Phosphatase 154 IU/L WBC 4.4 10 3/uL RBC 4.14 10 6/uL HGB 11.8 g/dL HCT 37.9 % MCV 91.5 fL MCH 28.5 pg MCHC 31.1 g/dL RDW 13.4 % Platelet Count 297 10 3/cmm MPV 8.9 fL Neutrophils 2.5 10 3/uL Lymphocytes 1.2 10 3/uL Monocytes 0.4 10 3/uL Eosinophils 0.4 10 3/uL Basophils 0.0 10 3/uL Neutrophil % 55.4 % Lymphocyte % 26.0 % Monocyte % 9.0 % Eosinophil % 8.4 % Basophils % 0.7 % Impression: 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 CT PET scan done the time of diagnosis in March 2018 consistent with disease from BOT/vallecule and biopsy from left anterior neck lymph node showed non-small cell carcinoma and biopsy of right upper lobe lung done on 03/30/2018 confirmed poorly differentiated squamous cell carcinoma Status post combined chemoradiation therapy to the oropharynx primary and left cervical metastatic lymph node, initially started on low-dose cisplatin/erbitux but erbitux was discontinued because of related allergic reaction requiring short hospital stay Later on switched to weekly carboplatin concurrent with radiation therapy on 05/24/2018, 05/31/2018 and 06/07/2018 and radiotherapy completed on 07/12/2018 CT scan of neck was done on 07/23/2018 showed left neck mass size is similar but too early to really to perry radiation impact and CT scan of chest showed multiple lung nodules largest being 2 cm size, stable with one new and 2 small enlarging nodules all less than 1 cm. Follow-up CT scan of chest done on 09/05/2018 showed slow progression of pulmonary disease, but patient remained asymptomatic at that time role of immunotherapy with nivolumab was discussed and patient agreed, she was started on every other week later on switched to every month, as per patient last dose was given in October that time her follow-up CT scan of chest done on 11/08/2018 showed mixed response e.g. enlargement of right lung metastases, as per patient she was referred to radiation oncology and she received 15 doses of radiation to right chest Follow-up CT PET scan done on 02/23/2019 showed there are multiple bilateral malignant pulmonary nodules, predominantly in the upper lobes, representing active metastatic disease. An index right upper lobe nodule measured 1.5 x 1.9 cm with SUV of 21, and index medial left upper lobe nodule measuring 1.5 cm in diameter has SUV of 17.3. 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 Treatment options include either: continue with nivolumab ( but concerning as her initial scan after she was started on nivolumab showed mixed response and then patient continued immunotherapy for some time and then stopped on her own more than 6 months ago). Another option was to consider another immunotherapy drug pembrolizumab but not sufficient data to prove whether it is effective if patient progressed done another immunotherapy. The third option was consider chemotherapy plus immunotherapy e.g. pembrolizumab plus carboplatin/5-FU or Taxol but patient is reluctant to consider multiple drugs because of her past experience with the chemotherapy. The last option considered was chemotherapy alone- doublet versus single agent but patient agreed for single agent so we will consider Abraxane 100 mg weekly day 1, 8 and 15 and repeat 28 days. The current plan is to give [address] PET scan if this is response then continue if stable disease then add pembrolizumab. She has tolerated 2 weeks of cycle 1 well overall. Plan: 1. Proceed with cycle 1 day 15 Abraxane. 2. will add Protonix to antiemetics today and send in a prescription for Pepcid 20 mg BID. I have also sent a prescription in for famciclovir 500 mg 3 times daily for 7 days for the angular kelitis. 3. Continue current antiemetics as they seem to be working well. I did encourage her to take them as soon as she feels queasy. 4. Labs from today were reviewed in detail and discussed with Ms. Santana and a copy was given to her. WBC 4.4 hemoglobin 11.8, platelets 297,000, neutrophils 2500. Creatinine 0.7. Glucose 167 alk phos is improved at 154. UA continues to show 1+ bacteria. 5. We will send in a prescription for Levaquin 250 mg for 5 days for abnormal UA. 6. Mrs. Vesna Ocasio will return in 2 weeks with CBC CMP for consideration of day 1 of cycle 2. I did request a follow-up UA for evaluation of her UTI. 7. She was instructed to contact us in interim should questions or problems arise. 8. We discussed that she could use a yogurt to help with keeping the normal bacteria in her gut. She states she will try to yogurt twice a day. This may help with her abdominal discomfort is a not sure what is causing that unless her diarrhea is worse than what she is telling us. Will also try the Pepcid to see if that gives her any relief. She is having symptoms of heartburn. We also discussed that she can do activities as she feels that she can. Actually encouraged her to be a little bit more active. She states she recently got a new so machine but is not felt like working with it. I have asked her to gradually increase her exercise to see if her energy will improve. She may be a candidate for cancer rehab at least initial consultation as she lives some distance from the hospital. Signed By: Padma Andres-, AOCNP Ivon Johnston MD <<Signature on File>>
[2019-11-06 09:53] LABS: Basophils # 0.1 10^3/uL (0.0-0.1); Basophils % 1.1 %; Eosinophils # 0.1 10^3/uL (0.0-0.8); Hematocrit 38.2 % (37.0-47.0); Hemoglobin 12.2 g/dL (11.5-15.3); Lymphocytes # 1.4 10^3/uL (0.8-4.8); Lymphocytes % 24.7 %; Mean Corpuscular HGB Conc 31.9 g/dL (30.0-36.0); Mean Corpuscular Hemoglobin 29.9 pg (28.0-34.0); Mean Corpuscular Volume 93.6 fL (81-99); Mean Platelet Volume 8.9 fL (7.4-10.4); Monocytes # 0.6 10^3/uL (0.2-0.9); Monocytes % 10.2 %; Neutrophils # 3.4 10^3/uL (1.8-7.7); Neutrophils % 61.6 %; Nucleated Red Blood Cells % 0 %; Platelet Count 320 10^3/cmm (130-400); Red Blood Count 4.08 10^6/uL (4.1-5.3); White Blood Count 5.5 10^3/uL (4.0-10.0)
[2019-11-06 10:08] LABS: Alanine Aminotransferase 19 U/L (0-33); Alkaline Phosphatase 207 IU/L (35-105); Anion Gap 15.8 (5-19); Aspartate Amino Transferase 26 U/L (0-32); Blood Urea Nitrogen 7 mg/dL (8-23); Calcium 9.4 mg/dL (8.5-10.5); Carbon Dioxide 26 mmol/L (22-29); Chloride 101 mmol/L (98-107); Globulin 2.7 g/dL (1.3-4.6); Glomerular Filtration Rate 123.4 mL/min (90-130); Glucose 160 mg/dL (65-115); Osmolality Calculated 287 mOsm/kg (285-295); Potassium 3.8 mmol/L (3.5-5.1); Sodium 139 mmol/L (136-145); Total Bilirubin 0.2 mg/dL (0.15-1.2); Total Protein 6.7 g/dL (6.6-8.7)
[2019-11-06 10:18] LABS: Add Urine Microscopic? YES; Bilirubin Urine Neg (NEGATIVE); Blood Urine Neg (Negative); Glucose Urine UA Norm (Normal); Ketones Urine Negative (Negative); Leukocyte Esterase Urine Trace (Negative); Nitrate Urine Negative (Negative); Protein Urine Neg (Negative); Urine Appearance Hazy (CLEAR); Urine Color Yellow (Yellow); Urobilinogen Urine Norm (Negative); pH Urine 6.5 (5-7)
[2019-11-06 10:20] LABS: Bacteria Urine 1+
[2019-11-06 10:21] LABS: Add Urine Culture? No
--- NOTE | 2019-11-06 16:18 | ONC FU_ITS ---
Dr. Johnston follow up note Patient: Raúl Malagon Unit #: [id number]: 1955 Dicatated By: Ivon Johnston M.D.Date of Visit:Nov 06, 2019 Onc Med Follow-up/Prog Note History of Present Illness: Mrs. 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 Whereas base of the tongue biopsy done on 04/19/2018 showed benign lymphoid tissue with reactive follicular hyperplasia, and benign squamous mucosa And right upper lobe lung biopsy done on 03/30/2018 showed poorly differentiated squamous cell carcinoma compatible with nonkeratinizing squamous carcinoma Left cervical lymph node FNA was done on 03/30/2018 showed non-small cell carcinoma In May 2018, she was started on combined chemoradiation, to the oropharynx and including left metastatic cervical lymph node. Initially with low-dose cisplatin/erbitux, but patient did develop erbitux reaction, requiring short hospital stay because of chest pain. At that time her chemotherapy was changed to single agent carboplatin concurrent with radiation therapy given on May 24, May 31 and 06/07/2018 Follow-up CT scan of the chest done on 09/05/2018 showed slow progression of pulmonary disease but patient was asymptomatic and she was offered single agent nivolumab on 09/07/2018, initially she was receiving every other week the later on changed to every month and last dose was given, as per patient in October [address] scan of chest done on 11/08/2018 showed mixed response as her right lung metastases was increasing in size, she was referred to radiation oncology. She completed 15 doses of radiation to her right chest in October 2018. In December 2018 she moved to [facility]. Follow-up CT PET scan done on 02/23/2019 showed there are multiple bilateral malignant pulmonary nodules, predominantly in the upper lobes, representing active metastatic disease. Index right upper lobe nodule measuring 1.5 x 1.9 cm with SUV of 21 and index medial left upper lobe nodule measures 1.5 cm in diameter and has SUV of 17.3. No other abnormality seen It was recommended that Mrs Lopez continue with nivolumab , biweekly. But patient never came back- as per patient she had transportation problem as she could not get new tag for her car and she was called and at that time our office was informed that she is not interested to continue immunotherapy but preferred observation. Follow-up CT scan of chest abdomen pelvis was done on 09/13/2019 as insurance did not allow PET scan. It showed numerous large metastatic nodules in both lungs progressed since prior examinations. Large markedly progressed left upper lobe mass measures 6.1 x 4.7 cm. Progressed left lower lobe nodule measuring 3.1 x 2.6 cm compared to 8 mm previously. Large lobulated right upper lobe nodule measures 4.4 x 2.2 cm. Large right upper lobe partially cavitating nodule abutting middle mediastinum has markedly progress size 4.1 x 2.6 cm. Additionally large left upper lobe medially measuring 2.9 x 2.5 cm. Liver is normal. No other changes seen and abdomen.started on palliative chemotherapy with single agent Abraxane on 10/07/2019 Came for follow-up, complaining of lower back pain now radiating to left leg since last week. Patient said it started in the lower back area then progressed to the tailbone and now in the left leg. Patient denies any trauma to her back. Denies any numbness in the lower extremity. Denies any urine or stool incontinence. Denies any fever or chills other nausea or vomiting. Movements in left leg can trigger this pain. . Medications: Allergy Relief 1 (4 mg) Tablet Oral daily, Aspirin 1 Tablet (of 81 mg) Oral daily, Biotin 1 Capsule (of 1000 mg) Oral daily, Centrum Silver 50+Women 1 Tablet Oral daily, HYDROcodone-Acetaminophen 1 Tablet (of 10-325 mg) Oral t.i.d. PRN, Metoprolol Tartrate 1 Tablet (of 50 mg) Oral b.i.d., Prochlorperazine Maleate 1 Tablet (of 10 mg) Oral q 4 hours PRN, Sertraline HCl 1 Tablet (of 50 mg) Oral daily Allergies: Ampicillin, Cetuximab, Penicillins, and Sulfa Antibiotics. Review of Systems: Review of Systems is not available for this patient. Vital Signs: Performed on Nov 06, 2019 11:11 Height - 66.00 in Weight - 142.6 lbs (LOW) BSA - 1.73 sq.m BMI - 23.02 Temperature - 97.6 F (LOW) Pulse - 76 /min Respiration - 24 /min BP - 134/70 mm(hg) O2 Sat - 97 % Pain - 9 Performance Status: 3 - Capable of only limited self-care, confined to bed or chair more than 50% of waking hours. (ECOG) Physical Examination: ENMT - No oral exudates, ulcers, masses, thrush or mucositis. Oropharynx clear. Tongue normal, Respiratory - Lungs are clear to auscultation without rhonchi or wheezing, Cardiovascular - Regular rate and rhythm of heart, Abdomen - Non-tender, non-distended, Good bowel sounds. No guarding or rebound tenderness. No pulsatile masses, Extremities - no edema and nonfocal,limited lower extremity neuro exam is intact. Lab/Imaging: Test performed on Oct 21, 2019 11:35 Ua Micro: Hyaline Casts 0-4 Ua Micro: WBC 0-4 /hpf Ua Micro: RBC NONE /hpf Ua Micro: Squam Epith Cells 0-4 Ua Micro: Bacteria 1+ Test performed on Oct 21, 2019 11:24 Sodium 140 mmol/L Potassium 4.0 mmol/L Chloride 100 mmol/L CO2 26 mmol/L Anion Gap 18.0 BUN 8 mg/dL Creatinine 0.7 mg/dL Cr Clearance (Est) 80.9500 mL/min eGFR 83.7 mL/min Glucose 167 mg/dL Calcium 9.4 mg/dL Protein, Total 7.1 g/dL Albumin 3.6 g/dL Globulin 3.5 g/dL Bilirubin, Total 0.2 mg/dL ALT (SGPT) 10 U/L AST (SGOT) 17 U/L Alkaline Phosphatase 154 IU/L WBC 4.4 10 3/uL RBC 4.14 10 6/uL HGB 11.8 g/dL HCT 37.9 % MCV 91.5 fL MCH 28.5 pg MCHC 31.1 g/dL RDW 13.4 % Platelet Count 297 10 3/cmm MPV 8.9 fL Neutrophils 2.5 10 3/uL Lymphocytes 1.2 10 3/uL Monocytes 0.4 10 3/uL Eosinophils 0.4 10 3/uL Basophils 0.0 10 3/uL Neutrophil % 55.4 % Lymphocyte % 26.0 % Monocyte % 9.0 % Eosinophil % 8.4 % Basophils % 0.7 % Impression: 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 CT PET scan done the time of diagnosis in March 2018 consistent with disease from BOT/vallecule and biopsy from left anterior neck lymph node showed non-small cell carcinoma and biopsy of right upper lobe lung done on 03/30/2018 confirmed poorly differentiated squamous cell carcinoma Status post combined chemoradiation therapy to the oropharynx primary and left cervical metastatic lymph node, initially started on low-dose cisplatin/erbitux but erbitux was discontinued because of related allergic reaction requiring short hospital stay Later on switched to weekly carboplatin concurrent with radiation therapy on 05/24/2018, 05/31/2018 and 06/07/2018 and radiotherapy completed on 07/12/2018 CT scan of neck was done on 07/23/2018 showed left neck mass size is similar but too early to really to perry radiation impact and CT scan of chest showed multiple lung nodules largest being 2 cm size, stable with one new and 2 small enlarging nodules all less than 1 cm. Follow-up CT scan of chest done on 09/05/2018 showed slow progression of pulmonary disease, but patient remained asymptomatic at that time role of immunotherapy with nivolumab was discussed and patient agreed, she was started on every other week later on switched to every month, as per patient last dose was given in October that time her follow-up CT scan of chest done on 11/08/2018 showed mixed response e.g. enlargement of right lung metastases, as per patient she was referred to radiation oncology and she received 15 doses of radiation to right chest Follow-up CT PET scan done on 02/23/2019 showed there are multiple bilateral malignant pulmonary nodules, predominantly in the upper lobes, representing active metastatic disease. An index right upper lobe nodule measured 1.5 x 1.9 cm with SUV of 21, and index medial left upper lobe nodule measuring 1.5 cm in diameter has SUV of 17.3. 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 Treatment options include either: continue with nivolumab ( but concerning as her initial scan after she was started on nivolumab showed mixed response and then patient continued immunotherapy for some time and then stopped on her own more than 6 months ago). Another option was to consider another immunotherapy drug pembrolizumab but not sufficient data to prove whether it is effective if patient progressed done another immunotherapy. The third option was consider chemotherapy plus immunotherapy e.g. pembrolizumab plus carboplatin/5-FU or Taxol but patient is reluctant to consider multiple drugs because of her past experience with the chemotherapy. The last option considered was chemotherapy alone- doublet versus single agent but patient agreed for single agent so we will consider Abraxane 100 mg weekly day 1, 8 and 15 and repeat 28 days. The current plan is to give [address] PET scan if this is response then continue if stable disease then add pembrolizumab. She has tolerated 2 weeks of cycle 1 well overall. Plan: Discussed with patient regarding her labs white blood count 5.5 globin 12.2 crit 38.2 platelets 320,000 CMP within normal limit except glucose 160 Clinically, patient is in moderate to severe distress due to lower back pain now radiating to left leg, etiology unclear could be due to disc prolapse or compression fracture vertebra or metastatic disease to spine. Because of uncontrollable pain, we will send her to emergency room for evaluation. We will hold her chemotherapy and she will return to clinic in 1 week. Next Addendum patient was seen in [facility], underwent CT scan of lumbar spine which shows L4 vertebral metastases and questionable L1. ER physician discussed with Dr. Ya, neurosurgery and radiation was recommended. Patient was started on dexamethasone, 10 mg loading dose, 4 milligrams every 6 hours ???2 days followed by 4 mg 3 times a day for 4 days. Further as per radiation recommendation. And pain medication she felt better with that and now being referred to radiation oncology for evaluation and we will hold chemotherapy during radiation therapy. Signed By: Ivon Johnston M.D. <<Signature on File>>
== END 2019-11-06 11:57 | disposition home or self-care (01) ==
LOC: ONCMED 05:42
PROVIDERS: Nurse Practitioner; Family Provider Family Medicine; PCP Family Medicine; Visit Provider Internal Medicine Hematology & Oncology
DX: Z51.11 Encounter for antineoplastic chemotherapy (principal); C76.0 Malignant neoplasm of head, face and neck; C78.01 Secondary malignant neoplasm of right lung; C78.02 Secondary malignant neoplasm of left lung; C79.51 Secondary malignant neoplasm of bone; N39.0 Urinary tract infection, site not specified; G89.3 Neoplasm related pain (acute) (chronic); J43.9 Emphysema, unspecified; I25.10 Atherosclerotic heart disease of native coronary artery without angina pectoris; F32.9 Major depressive disorder, single episode, unspecified; F17.210 Nicotine dependence, cigarettes, uncomplicated; Z77.090 Contact with and (suspected) exposure to asbestos; Z79.82 Long term (current) use of aspirin; Z79.891 Long term (current) use of opiate analgesic; Z95.5 Presence of coronary angioplasty implant and graft; Z92.25 Personal history of immunosuppression therapy; Z92.3 Personal history of irradiation; M54.5 Low back pain
CPT/HCPCS: 36591; 80053; 81001; 85025; 96367; 96375; 96413; 99214; C9113; J1100; J1453; J2469; J3490; J7050; J9264

== ENCOUNTER 2019-11-06 11:57 | Emergency (ER) | payer MEDICARE, SELFPAY ==
[2019-11-06 12:02] VITALS: BP 165/73; PULSE 80; RESP 17; TEMP 36.9; O2SAT 97; BMI 22.8
--- NOTE | 2019-11-06 12:07 | ED_ITS ---
Entered by Iliana Mars, acting as scribe for HPI - Back Pain/Injury General: Chief Complaint: Back Pain/Injury Stated Complaint: Lower back pain Time Seen by Provider: 11/06/19 12:02 Source: patient, RN notes reviewed and other (patient oncologist Dr Johnston) Mode of arrival: ambulatory Limitations: no limitations History of Present Illness: HPI Narrative: 64 yo female presents to ED with complaints of low back pain. She states this began 5 days ago She denies fever, loss of bowel function and loss of bladder function. She said her balance has been a little funny . She said the pain goes down her L leg and she has some R groin pain. The patient has active lung cancer, which metastasized from her neck. She said she has never had low back pain in the past. The patient had her chemotherapy port placed at [facility] in [place], [place]. At 1500, Jennifer at [facility] ([phone]) stated the patient's power port is MRI compatible. MD elicited complaint: back pain Pertinent past history: cancer (neck which metastasized to lung) Onset (ago): day(s) (3) Timing: constant and progressively worsening Severity: moderate Similar Symptoms Previously: No Quality: sharp Location: lumbar spine Radiation: groin (R), left upper leg and left leg below the knee Exacerbating factors: movement, walking and lifting Relieving factors: immobilization Context: unknown Associated symptoms: Deny abdominal pain, chills, difficulty walking, dysuria, fatigue, fever(s), hematuria, nausea, syncope, urinary urgency or vomiting Treatments prior to arrival: prescription analgesics (prescription pain mediction) Work related injury: No Review of Systems General: Reports: other (negative unless marked) Const: Denies: fever, chills, body aches, fatigue, malaise or diaphoresis Eyes: Denies: change in vision or blurry vision ENMT: Denies: throat pain, painful swallowing, hoarseness, ear pain, ear discharge, Change in hearing or nasal discharge Card: Denies: chest pain, palpitations, irregular heart rhythm, syncope, pre- syncope, shortness of breath on exertion or shortness of breath when lying down Resp: Denies: shortness of breath, productive cough, non-productive cough, wheezing, coughing up blood or chest congestion GI: Denies: abdominal pain, nausea, vomiting, vomiting blood, coffee grounds in vomit, diarrhea, constipation, cramping, blood in stool or black tarry stool : Denies: flank pain, painful urination, urinary frequency, urinary urgency, decreased urine ouput, urinary incontinence or blood in urine Musc: Reports: back pain and extremity pain; Denies: neck pain, extremity swelling, joint pain, joint swelling, joint warmth or joint stiffness Skin/Breast: Denies: rash, skin tenderness or yellow skin Neuro: Denies: headache, numbness in extremities, weakness in extremities, changes in sensation, lack of coordination, difficulty walking, dizziness, vertigo or confusion Endo: Denies: excessive thirst, tired all the time, cold intolerance, excessive sweating, flushing or hot flashes Amarjit/Lymph: Denies: easy bruising, easy bleeding, petechiae or enlarged lymph nodes All/Imm: Denies: hives, throat swelling, tongue swelling, facial swelling or acute wheezing PFSH ED PFSH: Social History Smoking and tobacco status: current every day smoker Physical Exam Const: COMMON NORMALS: no apparent distress, oriented x3, no limitations, healthy appearing and well nourished EXAM LIMITATIONS: no altered mental status GENERAL APPEARANCE: cooperative, well kempt and well developed ORIENTATION/CONSCIOUSNESS: Yes awake HENMT: COMMON NORMALS: normocephalic, head/scalp atraumatic, hearing grossly normal bilaterally, external ears normal, EAC's normal, external nose normal and moist oral mucous membranes HEAD & SCALP: normal to inspection, normocephalic and atraumatic FACE & SINUS: normal facial exam and face symmetric NOSE: external nose normal and nares normal EXTERNAL EAR: Yes external ears normal EXTERNAL AUDITORY CANAL: EAC's normal MOUTH: oral and palatal mucosa normal and tongue normal Eye: COMMON NORMALS: PERRL, EOMs intact bilaterally, conjunctivae normal and no scleral icterus GENERAL EYE: normal appearance of both eyes and normal light reflex CONJUNCTIVA: Yes conjunctivae normal SCLERA: sclerae normal CORNEA: Yes corneas normal PUPIL: Yes PERRL DIRECT OPHTHALMOSCOPY: Yes normal light reflex Neck/C-Spine: COMMON NORMALS: full ROM, no lymphadenopathy, supple, no meningeal signs and no JVD GENERAL: Yes normal visual inspection and Yes trachea midline CERVICAL SPINE: Yes cervical ROM normal Chest: COMMONS NORMALS: inspection of chest normal and palpation of chest normal Resp: COMMON NORMALS: normal respiratory effort, no retractions, no use of accessory muscles and clear to auscultation bilaterally EFFORT & INSPECTION: Yes able to speak in complete sentences AUSCULTATION: clear to auscultation bilaterally Cardio: COMMON NORMALS: no JVD, regular rate, regular rhythm, S1 normal heart sound, S2 normal heart sound, no gallops, no clicks, no murmurs and no rub JUGULAR VENOUS DISTENTION: no JVD RATE: regular rate RHYTHM: regular rhythm HEART SOUNDS: S1 normal and S2 normal GI: COMMON NORMALS: soft to palpation, non-tender, no hepatosplenomegaly and no masses INSPECTION: Yes normal to inspection PALPATION: Yes soft and Yes no hepatosplenomegaly : COMMON NORMALS: Yes no CVA tenderness BLADDER/KIDNEY EXAM: Yes no CVA tenderness Back/Pelvis: COMMON NORMALS: no CVA tenderness, thoracic and lumbar spine normal to inspection, no thoracic nor lumbar tenderness and thoraco-lumbar ROM normal Extremity: COMMON NORMALS: normal to inspection, full ROM, normal capillary refill, no joint enlargement, no clubbing, cyanosis or edema and no calf tenderness OTHER: Patient has no cellulitis or tenderness to palpation of the midline in the thoracic or lumbar spine. Patient with a straight leg raising test on the left side but negative on the right. Rectal tone is normal and there is no evidence of saddle anesthesia. Deep tendon reflexes are 2/4 at the knee and ankle. No clonus is present. Muscle strength is 5 out of 5 of both lower extremities. Neuro: COMMON NORMALS: oriented x3, CN's II-XII intact bilaterally, moves all extremities, no focal motor deficits and no sensory deficits noted MENINGEAL SIGNS: Yes no meningeal signs Psych: COMMON NORMALS: mental status grossly normal, thought process normal, cooperative, affect normal, speech normal and activity/motor behavior normal APPEARANCE: Yes well kempt SPEECH: Yes normal speech THOUGHT PROCESS: normal thought process Skin: COMMON NORMALS: no rashes or lesions noted, skin turgor normal, no jaund ice, no petechiae and no mottling GENERAL SKIN EXAM: no rashes or lesions noted and turgor normal Course ED course: 1215 -case was reviewed with Dr. Ya, on-call neurosurgeon. He believes at this time with the patient's history and exam suggesting more of a sciatica type picture that CT scan is appropriate. His CT scans are negative then work-up can probably be stopped and this could be treated like sciatica. If there is any abnormality an MRI may be necessary. I reviewed this plan with Dr. Johnston and he is in agreement with this plan. I reviewed this with the patient as well and she believes this makes sense to her and would like to proceed with this route. Vital Signs: Vital signs: Vital Signs Temperature 98.4 F 11/06/19 12:02 Pulse Rate 75 11/06/19 14:32 Respiratory Rate 18 11/06/19 14:32 Blood Pressure 150/71 11/06/19 14:32 Pulse Oximetry 96 11/06/19 14:32 MDM - Back Pain/Injury MDM Narrative: Medical decision making narrative: The MRI results are discussed with the radiologist as well as with Dr. Ya and Dr. Johnston. I will agree the patient is stable for discharge. She understands she will need to follow-up and possibly have an outpatient radiation oncology appointment and treatment. Dr. Johnston is going to arrange for this. At this time the patient is better and wants to go home. She agrees to return should her symptoms change or worsen. I did review with her at length the signs and symptoms of cauda equina syndrome and cord compression and she states she understands these and will return if necessary. This time she is feeling much better and is ready for discharge. Lab Data: Labs: Lab Results 11/06/19 11/06/19 Range/Units 15:37 15:37 WBC 5.3 (4.0-10.0) 10^3/ uL RBC 3.85 L (4.1-5.3) 10^6/u L Hgb 11.1 L (11.5-15.3) g/dL Hct 35.9 L (37.0-47.0) % MCV 93.2 (81-99) fL MCH 28.8 (28.0-34.0) pg MCHC 30.9 (30.0-36.0) g/dL RDW 14.0 (12.1-15.1) % Plt Count 279 (130-400) 10^3/c mm MPV 8.6 (7.4-10.4) fL Neut % (Auto) 62.1 % Lymph % (Auto) 25.1 % Quay % (Auto) 9.5 % Eos % (Auto) 1.9 % Baso % (Auto) 1.0 % Neut # (Auto) 3.3 (1.8-7.7) 10^3/u L Lymph # (Auto) 1.3 (0.8-4.8) 10^3/u L Quay # (Auto) 0.5 (0.2-0.9) 10^3/u L Eos # (Auto) 0.1 (0.0-0.8) 10^3/u L Baso # (Auto) 0.1 (0.0-0.1) 10^3/u L Nucleated RBC % (a uto) 0 % Nucleated RBCs # 0.0 /100WBC Sodium 144 (136-145) mmol/L Potassium 3.8 (3.5-5.1) mmol/L Chloride 106 (98-107) mmol/L Carbon Dioxide 27 (22-29) mmol/L Anion Gap 14.8 (5-19) BUN 8 (8-23) mg/dL Creatinine 0.5 (0.5-0.9) mg/dL GFR Calculation 123.4 (90-130) mL/min Glucose 97 (65-115) mg/dL Calculated Osmolal ity 294 (285-295) mOsm/k g Calcium 9.1 (8.5-10.5) mg/dL Total Bilirubin 0.3 (0.15-1.2) mg/dL AST 24 (0-32) U/L ALT 18 (0-33) U/L Alkaline Phosphata se 181 H (35-105) IU/L Total Protein 6.6 (6.6-8.7) g/dL Albumin 3.9 (3.5-5.2) g/dL Globulin 2.7 (1.3-4.6) g/dL Imaging Data^: CT Chest: Radiologist's impression: [address] [address] [address] Scan Report Signed Patient: Raúl Malagon Unit #: [id number] : 1955 Age/Sex: 64 / F ADM Date: 11/06/19 Loc: ER Room/Bed: Attending Dr: Ordering Provider/Ordering MD: Chitra Lane DO Date of Service: 11/06/19 Procedure(s): CT thoracic spin wo con* [id number] Accession Number(s): [id number] Report Number: [id number] WS: [id number] CT scan of the thoracic spine. Additional two-dimensional coronal and sagittal reconstruction was performed. 11/06/2019 Clinical Data: PAIN Comparison: CT thoracic spine, 06/25/2018. DLP: 906.[address] scans at [facility] use at least one of these dose optimization techniques: automated exposure control; mA and/or kV adjustment per patient size (includes targeted exams where dose is matched to clinical indication); or iterative reconstruction. Findings: No compression fractures are seen. There is minimal anterior osteoarthritic spurring of the thoracic vertebral bodies. The spinous processes are in good alignment. Disc heights are normal The proximal ribs are not remarkable. No metastatic lesions of the thoracic vertebral bodies, pedicles or lamina can be seen. There are bilateral lung masses which have been described on the CT chest abdomen pelvis of 09/13/2019.. CT/CT thoracic spin wo con* [id number] Impression: 1. Negative for metastatic lesion to the thoracic spine. 2. Bilateral lung masses. Dictated By: Sofya Barreto MD Signed By: Sofya Barreto MD Signed Date/Time: 11/06/19 1257 DD/ [address]: Radiologist's impression: [place] [address] CT Scan Report Signed Patient: Bernardino Malagon #: [id number] : 1955cct#:[id number] Age/Sex: 64 / FADM Date: 11/06/19 Loc: ERRoom/Bed: Attending Dr: Ordering Provider/Ordering MD: Chitra Lane DO Date of Service: 11/06/19 Procedure(s): CT lumbar spine wo con* [id number] Accession Number(s): [id number] Report Number: [id number] WS: [id number] CT of the lumbar spine, additional two-dimensional coronal and sagittal imaging was obtained. 11/06/2019 Clinical Data: PAIN Comparison: CT chest abdomen and pelvis, 09/13/2019 DLP: 1555.[address] scans at [facility] use at least one of these dose optimization techniques: automated exposure control; mA and/or kV adjustment per patient size (includes targeted exams where dose is matched to clinical indication); or iterative reconstruction. Findings: There is a probable metastatic lesion involving the right lateral aspect of the L4 vertebral body. Review of the previous CT chest abdomen and pelvis shows that this lesion was not present at this time. There is also a suspicious lesion on the right side of the L2 vertebral body but there is no cortical destruction as yet. On neither the L2 or L4 vertebral bodies is there any evidence of pedicle involvement. No compression fractures are seen. There is degenerative disc narrowing at L5-S1 with anterior osteophyte formation. Spinal canal appears to be normal. T12-L1: No canal stenosis, disc bulge or foraminal narrowing is seen. L1-L2: No canal stenosis, disc bulge or foraminal narrowing is seen. L2-L3: No canal stenosis, disc bulge or foraminal narrowing is seen. L3-L4: There is a bulging disc causing mild canal stenosis. L4-L5: There is a bulging disc causing mild canal stenosis. L5-S1: There is a bulging disc causing mild canal stenosis. CT/CT lumbar spine wo con* 18124 Impression: 1. Probable metastatic disease to the right lateral aspect of the L4 vertebral body and also the L2 vertebral body. 2. Bulging discs from L3-L4 and L5-S1 causing canal stenosis. Dictated By:Sfoya Barreto MD Signed By:Sofya Barreto MDSigned Date/Time:11/06/[address] [address] [address] Scan Report Signed Patient: Bernardino Malagon #: [id number] : 3Acct#:[id number] Age/Sex: 64 / FADM Date: 11/06/19 Loc: ERRoom/Bed: Attending Dr: Ordering Provider/Ordering MD: Chitra Lane DO Date of Service: 11/06/19 Procedure(s): CT thoracic spin wo con* [id number] Accession Number(s): [id number] Report Number: [id number] WS: [id number] CT scan of the thoracic spine. Additional two-dimensional coronal and sagittal reconstruction was performed. 11/06/2019 Clinical Data: PAIN Comparison: CT thoracic spine, 06/25/2018. DLP: 906.[address] scans at [facility] use at least one of these dose optimization techniques: automated exposure control; mA and/or kV adjustment per patient size (includes targeted exams where dose is matched to clinical indication); or iterative reconstruction. Findings: No compression fractures are seen. There is minimal anterior osteoarthritic spurring of the thoracic vertebral bodies. The spinous processes are in good alignment. Disc heights are normal The proximal ribs are not remarkable. No metastatic lesions of the thoracic vertebral bodies, pedicles or lamina can be seen. There are bilateral lung masses which have been described on the CT chest abdomen pelvis of 09/13/2019.. CT/CT thoracic spin wo con* [id number] Impression: 1. Negative for metastatic lesion to the thoracic spine. 2. Bilateral lung masses. Dictated By:Sofya Barreto MD Signed By:Sofya Barreto MDSigned Date/Time:11/06/19 CXR: Radiologist's impression: [address] [address] XRay Report Signed Patient: Bernardino Malagon #: [id number] : 3Acct#:[id number] Age/Sex: 64 / FADM Date: 11/06/19 [facility] Attending Dr: Ordering Provider/Ordering MD: Chitra Lane DO Date of Service: 11/06/19 Procedure(s): XR chest 1V portable [id number] Accession Number(s): [id number] Report Number: [id number] WS: [id number] Portable AP upright chest, 11/06/2019 Clinical Data: PAIN Comparison: CT chest abdomen and pelvis, 09/13/2019. Findings: There is a left hilar mass and a peripheral left lung mass. There is a small mass at the junction of the left diaphragm and T11 vertebral body. There is also a right suprahilar mass. These masses have been seen and described on the CT. No effusions are seen. The heart is normal. The aortic arch shows calcification. There is an infusion catheter entering from the left and ending in the superior vena cava. XR/XR chest 1V portable [id number] Impression: 1. Multiple lung masses bilaterally consistent with lung cancer and multiple metastases.. 2. Atherosclerosis. Dictated By:Sofya Barreto MD Signed By:Sofya Barreto MDSigned Date/Time:11/06/19 Other Imaging: Radiologist's impression: [place] [address] Magnetic Resonance Report Signed Patient: Bernardino Malagon #: [id number] : 3Acct#:[id number] Age/Sex: 64 / FADM Date: 11/06/19 Loc: ERRoom/Bed: Attending Dr: Ordering Provider/Ordering MD: Chitra Lane DO Date of Service: 11/06/19 Procedure(s): MR lumbar spine wo/w con [id number] Accession Number(s): [id number] Report Number: [id number] WS: [id number] MRI of the lumbar spine, 11/06/2019 Clinical Data: PAIN AND METASTATIC LESION Comparison: CT lumbar spine, 11/06/2019 Findings: The L4 lesion demonstrates contrast enhancement consistent with metastatic disease. The L2 vertebral body does not demonstrate contrast enhancement. However there is increased signal on the STIR and contrast enhancement in the L1 vertebral body but there is no comparable abnormality noted on the CT lumbar spine. There is degenerative disc disease at L5-S1. No compression fractures are seen. L1-L2: No canal stenosis, disc bulge or foraminal narrowing is seen. L2-L3: No canal stenosis, disc bulge or foraminal narrowing is seen. L3-L4: No canal stenosis, disc bulge or foraminal narrowing is seen. L4-L5: There is a broad-based disc bulge with facet joint hypertrophy causing mild canal and foraminal stenosis. L5-S1: No canal stenosis, disc bulge or foraminal narrowing is seen. MR/MR lumbar spine wo/w con [id number] Impression: 1. Probable metastatic disease involving the right side of the L4 vertebral body. 2. No definite metastatic involvement of the L2 vertebral body. 3. Questionable involvement of the L1 vertebral body with metastatic disease. 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 Sciatica Qualifiers: Laterality: left Qualified Code(s): M54.32 - Sciatica, left side Condition: Stable Prescriptions: New Percocet 5-325 mg tablet 1 tab PO Q6H PRN (Reason: pain) Qty: 20 RF: 0 No Action Multiple Vitamins Tablet 1 tab PO DAILY RF: 0 prochlorperazine maleate 10 mg tablet 10 mg PO Q4H PRN (Reason: Nausea) RF: 0 hydrocodone-acetaminophen 10-325 mg tablet 1 tab PO Q8H PRN (Reason: Pain) RF: 0 Aspir-81 81 mg Tablet,Delayed Release (Dr/Ec) 81 mg PO DAILY RF: 0 dicyclomine 20 mg tablet 20 mg PO TID PRN (Reason: Abdominal Pain) RF: 0 metoprolol tartrate 50 mg tablet 50 mg PO BID RF: 0 nitroglycerin 0.4 mg tablet, sublingual 0.4 mg sublingual PRN PRN (Reason: Chest Pain) RF: 0 lorazepam 1 mg tablet 0.5 - 1 mg PO TID PRN (Reason: Nausea) RF: 0 sertraline 50 mg tablet 50 mg PO DAILY RF: 0 biotin 1 tab PO DAILY RF: 0 Discharge Orders: Discharge Order (Routine); Ordered 11/06/19 Ordered By: Chitra Lane Referrals: Clemente Sánchez [Primary Care Provider] - Ivon Johnston MD [Staff Physician] - 1-3 days (Call Dr. Johnston's office as they will refer you to the radiation oncologist for further evaluation and treatment.) Discharge Diet: Advance as tolerated Discharge Activity: Increase activity as tolerated Patient Instructions: Sciatica (ED) Activity Restrictions/Additional Instructions: Please return to the ER immediately for any of the signs or symptoms listed on your discharge instruction sheets, worsening/changing of your symptoms, you are not getting better as quickly as expected, or for ANY other cause or concerns. Be certain to take the Decadron as well as the Percocet that I have prescribed you. Return to the ER for any loss of bowel or bladder control, fever, numbness in your groin, numbness or weakness of your leg, or for any other cause for concern. Be certain to follow-up with Dr. Johnston in regards to a plan on seeing the radiation oncologist. Coding Level of Care Code ED Welding Pantograph Operator for Chg Fwd Exam Comprehensive The documentation recorded by the Jerad meng Valerie R, accurately reflects the service I personally performed and the decisions made by me, Chitra Lane Nov 06, 2019 11:57
--- NOTE | 2019-11-06 12:15 | CT_ITS ---
WS: [id number] CT scan of the thoracic spine. Additional two-dimensional coronal and sagittal reconstruction was per formed. 11/06/2019 Clinical Data: PAIN Comparison: CT thoracic spine, 06/25/2018. DLP: 906.[address] scans at [facility] use at least one of these dose optimization techniques: automat ed exposure control; mA and/or kV adjustment per patient size (includes targeted exams where dose is matched to clinical indication); or iterative reconstruction. Findings: No compression fractures are seen. There is minimal anterior osteoarthritic spurring of the thoracic vertebral bodies. The spinous processes are in good alignment. Disc heights are normal The proximal r ibs are not remarkable. No metastatic lesions of the thoracic vertebral bodies, pedicles or lamina ca n be seen. There are bilateral lung masses which have been described on the CT chest abdomen pelvis o f 09/13/2019.. CT/CT thoracic spin wo con* [id number] Impression: 1. Negative for metastatic lesion to the thoracic spine. 2. Bilateral lung masses.
--- NOTE | 2019-11-06 12:15 | CT_ITS ---
WS: [id number] CT of the lumbar spine, additional two-dimensional coronal and sagittal imaging was obtained. 11/06/19 Clinical Data: PAIN Comparison: CT chest abdomen and pelvis, 09/13/2019 DLP: 1555.[address] scans at [facility] use at least one of these dose optimization techniques: automat ed exposure control; mA and/or kV adjustment per patient size (includes targeted exams where dose is matched to clinical indication); or iterative reconstruction. Findings: There is a probable metastatic lesion involving the right lateral aspect of the L4 vertebra l body. Review of the previous CT chest abdomen and pelvis shows that this lesion was not present at this time. There is also a suspicious lesion on the right side of the L2 vertebral body but there is no cortical destruction as yet. On neither the L2 or L4 vertebral bodies is there any evidence of ped icle involvement. No compression fractures are seen. There is degenerative disc narrowing at L5-S1 with anterior osteophyte formation. Spinal canal appear s to be normal. T12-L1: No canal stenosis, disc bulge or foraminal narrowing is seen. L1-L2: No canal stenosis, disc bulge or foraminal narrowing is seen. L2-L3: No canal stenosis, disc bulge or foraminal narrowing is seen. L3-L4: There is a bulging disc causing mild canal stenosis. L4-L5: There is a bulging disc causing mild canal stenosis. L5-S1: There is a bulging disc causing mild canal stenosis. CT/CT lumbar spine wo con* [id number] Impression: 1. Probable metastatic disease to the right lateral aspect of the L4 vertebral body and also the L2 vertebral body. 2. Bulging discs from L3-L4 and L5-S1 causing canal stenosis.
--- NOTE | 2019-11-06 12:43 | PC.NURSE ---
RECTAL EXAM DONE BY DR OSORIO WITH NURSE JAROD PRESENT. PT TOLERATED WELL. DR OSORIO STATES GOOD RECTAL TONE. PT TAKEN TO RADIOLOGY DEPT FOR IMAGES VIA WC.
[2019-11-06] MEDS: ondansetron 2 mg/ML SDV 2 mL 4 MG IVP (12:54)
[2019-11-06 12:55] VITALS: RESP 17; O2SAT 96
[2019-11-06] MEDS: morphine 4 mg/mL SDV 1 mL IVP (12:55)
[2019-11-06] MEDS: sodium chloride 0.9% 1,000 ML 100 ML IV (12:58)
--- NOTE | 2019-11-06 13:32 | XR_ITS ---
WS: [id number] Portable AP upright chest, 11/06/2019 Clinical Data: PAIN Comparison: CT chest abdomen and pelvis, 09/13/2019. Findings: There is a left hilar mass and a peripheral left lung mass. There is a small mass at the ju nction of the left diaphragm and T11 vertebral body. There is also a right suprahilar mass. These mas ses have been seen and described on the CT. No effusions are seen. The heart is normal. The aortic ar ch shows calcification. There is an infusion catheter entering from the left and ending in the superi or vena cava. XR/XR chest 1V portable [id number] Impression: 1. Multiple lung masses bilaterally consistent with lung cancer and multiple me tastases.. 2. Atherosclerosis.
[2019-11-06 13:37] VITALS: BP 141/61; PULSE 70; RESP 18; O2SAT 96
--- NOTE | 2019-11-06 13:42 | MR_ITS ---
WS: [id number] MRI of the lumbar spine, 11/06/2019 Clinical Data: PAIN AND METASTATIC LESION Comparison: CT lumbar spine, 11/06/2019 Findings: The L4 lesion demonstrates contrast enhancement consistent with metastatic disease. The L2 vertebral body does not demonstrate contrast enhancement. However there is increased signal on the STIR and con trast enhancement in the L1 vertebral body but there is no comparable abnormality noted on the CT lum bar spine. There is degenerative disc disease at L5-S1. No compression fractures are seen. L1-L2: No canal stenosis, disc bulge or foraminal narrowing is seen. L2-L3: No canal stenosis, disc bulge or foraminal narrowing is seen. L3-L4: No canal stenosis, disc bulge or foraminal narrowing is seen. L4-L5: There is a broad-based disc bulge with facet joint hypertrophy causing mild canal and foramina l stenosis. L5-S1: No canal stenosis, disc bulge or foraminal narrowing is seen. MR/MR lumbar spine wo/w con [id number] Impression: 1. Probable metastatic disease involving the right side of the L4 vertebral bod y. 2. No definite metastatic involvement of the L2 vertebral body. 3. Questionable involvement of the L1 vertebral body with metastatic disease.
[2019-11-06 14:20] VITALS: RESP 18; O2SAT 97
[2019-11-06] MEDS: HYDROmorphone 1 mg/mL INJ 1 mL 0.5 MG IVP (14:20)
--- NOTE | 2019-11-06 14:31 | PC.NURSE ---
Pt to MRI via ems transport. medicated for c/o pain prior to leaving.
[2019-11-06 14:32] VITALS: BP 150/71; PULSE 75; RESP 18; O2SAT 96
[2019-11-06 15:43] LABS: Basophils # 0.1 10^3/uL (0.0-0.1); Eosinophils # 0.1 10^3/uL (0.0-0.8); Eosinophils % 1.9 %; Hematocrit 35.9 % (37.0-47.0); Hemoglobin 11.1 g/dL (11.5-15.3); Lymphocytes # 1.3 10^3/uL (0.8-4.8); Lymphocytes % 25.1 %; Mean Corpuscular HGB Conc 30.9 g/dL (30.0-36.0); Mean Corpuscular Hemoglobin 28.8 pg (28.0-34.0); Mean Corpuscular Volume 93.2 fL (81-99); Mean Platelet Volume 8.6 fL (7.4-10.4); Monocytes # 0.5 10^3/uL (0.2-0.9); Monocytes % 9.5 %; Neutrophils # 3.3 10^3/uL (1.8-7.7); Neutrophils % 62.1 %; Nucleated Red Blood Cells % 0 %; Platelet Count 279 10^3/cmm (130-400); Red Blood Count 3.85 10^6/uL (4.1-5.3); White Blood Count 5.3 10^3/uL (4.0-10.0)
[2019-11-06 15:57] LABS: Alanine Aminotransferase 18 U/L (0-33); Albumin Level 3.9 g/dL (3.5-5.2); Alkaline Phosphatase 181 IU/L (35-105); Anion Gap 14.8 (5-19); Aspartate Amino Transferase 24 U/L (0-32); Blood Urea Nitrogen 8 mg/dL (8-23); Calcium 9.1 mg/dL (8.5-10.5); Carbon Dioxide 27 mmol/L (22-29); Chloride 106 mmol/L (98-107); Creatinine Clr Calc Pharmacy 66.9885; Globulin 2.7 g/dL (1.3-4.6); Glomerular Filtration Rate 123.4 mL/min (90-130); Glucose 97 mg/dL (65-115); Osmolality Calculated 294 mOsm/kg (285-295); Potassium 3.8 mmol/L (3.5-5.1); Sodium 144 mmol/L (136-145); Total Bilirubin 0.3 mg/dL (0.15-1.2); Total Protein 6.6 g/dL (6.6-8.7)
[2019-11-06] MEDS: dexamethasone 10 mg/mL INJ IVP (16:22)
[2019-11-06 16:28] VITALS: BP 117/53; PULSE 71; RESP 17; O2SAT 96
--- NOTE | 2019-11-07 15:41 | DCPLANNER ---
physical therapy manager had message to schedule a follow up appointment for patient with Dr. Johnston. physical therapy manager called Shahrzad Ravinder, patient has a follow up appointment scheduled for November [address] Johnston. Clinic will call patient with appointment information.
--- NOTE | 2020-01-15 08:08 | DCPLANNER ---
Patient did attend the appointment with Dr. Johnston.
== END 2019-11-06 16:39 | disposition home or self-care (01) ==
PROVIDERS: Emergency Provider Emergency Medicine; Family Provider Family Medicine; PCP Family Medicine
DX: M54.42 Lumbago with sciatica, left side (principal); C79.51 Secondary malignant neoplasm of bone; C78.02 Secondary malignant neoplasm of left lung; C78.01 Secondary malignant neoplasm of right lung; F17.200 Nicotine dependence, unspecified, uncomplicated
CPT/HCPCS: 12345; 36415; 71045; 72128; 72131; 72158; 80053; 85025; 96374; 96375; 99282; 99284; A9579; J0131; J1100; J1170; J2270; J2405; J7030

== ENCOUNTER 2019-11-12 06:49 | Outpatient (RCR) | payer MEDICARE, SELFPAY ==
--- NOTE | 2019-11-08 | CT_ITS ---
Radiation Therapy Planning CT images; total exam DLP: 415.07 mGy-cm MTDD
== END 2019-11-12 23:59 | disposition home or self-care (01) ==
LOC: ONCMED 06:49
PROVIDERS: Family Provider Family Medicine; PCP Family Medicine
DX: Z51.0 Encounter for antineoplastic radiation therapy (principal); C79.51 Secondary malignant neoplasm of bone; C76.0 Malignant neoplasm of head, face and neck; G89.3 Neoplasm related pain (acute) (chronic)
CPT/HCPCS: 77290; 77300; 77307; 77334; 77412; 77417; 99204

== ENCOUNTER 2019-12-11 06:40 | Outpatient (RCR) | payer MEDICARE, SELFPAY ==
--- NOTE | 2019-11-14 08:08 | NM_ITS ---
WS: [id number] NUCLEAR MEDICINE WHOLE BODY BONE SCAN HISTORY: BONE pain/metastatic CANCER COMPARISON: MRI 11/06/2019. TECHNIQUE: The patient was injected with 26.3 mCi of Technetium 99m HDP and serial whole-body scintig deyanira have been performed with anterior and posterior images. Axial imaging over the skull and lumbar spine. Focal lobulated area of mild increased uptake involving the posterior LEFT parietal region. Focal intense uptake in the superior RIGHT L4 vertebral body. Intense uptake along the LEFT SI joint. Normal soft tissue uptake. Normal uptake within the kidneys. No additional suspicious findings. Note: During review of the MRI lumbar spine from 11/06/2019 and there is abnormal signal within the LE FT sacrum consistent with a metastatic lesion. Lobulated decreased signal on the T1 sequences with in creased signal on the T2 and STIR sequences. Incompletely visualized but the abnormality visualized m easures 7.6 x 4.2 cm consistent with metastatic lesion. This corresponds to the findings in the LEFT sacrum by bone scan imaging. NM/NM bone scan whole body* [id number] IMPRESSION: 1. Findings suspicious for metastatic disease in the superior RIGHT L4 vertebr al body and LEFT sacrum. 2. Lobulated moderate increased uptake in the posterior LEFT parietal bone. No radiographic abnormality identified. Recommend follow-up noncontrast CT head.
--- NOTE | 2019-11-14 11:10 | XR_ITS ---
WS: [id number] SKULL, 2 VIEWS HISTORY: COMPARISON W/BONE SCAN COMPARISON: Bone scan imaging for 2 2020. No definite destructive bone lesions involving the posterior skull to correspond to the bone scan fin dings. Very vague lytic areas seen on the AP projection in the LEFT parietal region. No air-fluid levels in the sinuses. The bony structures are unremarkable. XR/XR skull <4V [id number] IMPRESSION: 1. No corresponding radiographic findings on the skull to suggest metastatic d isease. 2. Recommend follow-up CT head without contrast to better evaluate the LEFT pa rietal lesion seen on bone scan.
--- NOTE | 2019-11-19 10:53 | ONCRAD TMN_ITS ---
Radiation Oncology Weekly Treatment Management Patient: Raúl Malagon MR#: [id number] : 1955> Age: 64> Sex: Female Dictated by: Dr. Ryland Quick Date of Service: 11/19/2019 Referring Physician(s) : Dr. Johnston Primary Diagnosis: C76.0 - Malignant neoplasm of head, face and neck, Diagnosed 02/18/2019 (Active) Radiotherapy to date: Course: Spine, Treatment Site: Spine 30Gy, Ref. ID: [id number], Dose/Fx (cGy): 300, #Fx: 5 / 10, Dose Correction (cGy): 0, Total Dose (cGy): 1,500, Start Date: 11/12/2019, Elapsed Days: 7 Current Complaints/Interval History: Current Medications: Abraxane, allergy Relief, aloxi, aspirin, biotin, centrum Silver 50+Women, dexamethasone, dexamethasone Sodium Phosphate, dicyclomine HCl, emend, famciclovir, famotidine, famotidine in NaCl, hYDROcodone-Acetaminophen, hYDROcodone-Acetaminophen, levoFLOXacin, metoprolol Tartrate, prochlorperazine Maleate, prochlorperazine Maleate, sertraline HCl. Allergies: Ampicillin, Cetuximab, Penicillins and Sulfa Antibiotics. Vital Signs: Performed on 11/19/2019 10:22 AM BMI - 22.726 kg/m2, Height - 66.00 in, Weight - 140.8 lbs, Temperature - 98.0 f, Pulse - 77, Respiration - 18, O2 Sat - 98 %, Pain - 9 and BP - 124/ 52 mm(hg)(/low). Physical Exam: Appears stable, no skin erythema or desquamation. Performance Status: 3 - Capable of only limited self-care, confined to bed or chair more than 50% of waking hours. (ECOG) Lab: None pending in Radiation Oncology. Test performed on 11/06/2019 9:38 AM RBC - 4.08 10 6/ul (low), BUN - 7 mg/dl (low), Glucose - 160 mg/dl (high) and Alkaline Phosphatase - 207 iu/l (high). Imaging: No new diagnostic imaging was performed since the last weekly treatment visit. All radiation therapy related imaging (including but not limited to kV, MV, and CBCT generated images) was reviewed. Appropriate changes, if any, were made to assure accurate target localization. Impression/Plan: Tolerating treatment well with expected side effects. Continue treatment as planned. CPT: 13089 Signed by: Dr. Ryland Quick>11/19/2019 10:52:04 AM <<Signature on File>>
--- NOTE | 2019-11-25 10:24 | ONCRAD TMN_ITS ---
Radiation Oncology Weekly Treatment Management Patient: Raúl Malagon MR#: [id number] : 1955 Age: 64 Sex: Female Dictated by: Dr. Ryland Quick Date of Service: 11/25/2019 Referring Physician(s) : Referred Self Primary Diagnosis: C76.0 - Malignant neoplasm of head, face and neck, Diagnosed 02/18/2019 (Active) Radiotherapy to date: Course: Spine, Treatment Site: Spine 30Gy, Ref. ID: [id number], Energy: 15X, Dose/Fx (cGy): 300, #Fx: , Dose Correction (cGy): 0, Total Dose (cGy): 2,700, Start Date: 11/12/2019, Elapsed Days: 13 Current Complaints/Interval History: Current Medications: Abraxane, allergy Relief, aloxi, aspirin, biotin, centrum Silver 50+Women, dexamethasone, dexamethasone Sodium Phosphate, dicyclomine HCl, emend, famciclovir, famotidine, famotidine in NaCl, hYDROcodone-Acetaminophen, hYDROcodone-Acetaminophen, levoFLOXacin, metoprolol Tartrate, prochlorperazine Maleate, prochlorperazine Maleate, sertraline HCl. Allergies: Ampicillin, Cetuximab, Penicillins and Sulfa Antibiotics. Vital Signs: Physical Exam: Appears stable, no skin erythema or desquamation. Performance Status: 3 - Capable of only limited self-care, confined to bed or chair more than 50% of waking hours. (ECOG) Lab: None pending in Radiation Oncology. Imaging: No new diagnostic imaging was performed since the last weekly treatment visit. All radiation therapy related imaging (including but not limited to kV, MV, and CBCT generated images) was reviewed. Appropriate changes, if any, were made to assure accurate target localization. Impression/Plan: Tolerating treatment well with expected side effects. Continue treatment as planned. Still with pain-has meds per referring physician who???ll manage the pain. She was reminded that she???ll obtain maximal analgesic benefit 6-8 weeks after completion of radiation. CPT: 18292 Signed by: Dr. Ryland Quick>11/25/2019 10:22:26 AM <<Signature on File>>
--- NOTE | 2020-01-17 11:40 | ONC FU_ITS ---
Dr. Johnston follow up note Patient: Raúl Malagon < Unit #: [id number]: 1955 Dicatated By: Ivon Johnston M.D.Date of Visit:Dec 11, 2019 Onc Med Follow-up/Prog Note History of Present Illness: Mrs. 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 Whereas base of the tongue biopsy done on 04/19/2018 showed benign lymphoid tissue with reactive follicular hyperplasia, and benign squamous mucosa And right upper lobe lung biopsy done on 03/30/2018 showed poorly differentiated squamous cell carcinoma compatible with nonkeratinizing squamous carcinoma Left cervical lymph node FNA was done on 03/30/2018 showed non-small cell carcinoma In May 2018, she was started on combined chemoradiation, to the oropharynx and including left metastatic cervical lymph node. Initially with low-dose cisplatin/erbitux, but patient did develop erbitux reaction, requiring short hospital stay because of chest pain. At that time her chemotherapy was changed to single agent carboplatin concurrent with radiation therapy given on May 24, May 31 and 06/07/2018 Follow-up CT scan of the chest done on 09/05/2018 showed slow progression of pulmonary disease but patient was asymptomatic and she was offered single agent nivolumab on 09/07/2018, initially she was receiving every other week the later on changed to every month and last dose was given, as per patient in October [address] scan of chest done on 11/08/2018 showed mixed response as her right lung metastases was increasing in size, she was referred to radiation oncology. She completed 15 doses of radiation to her right chest in October 2018. In December 2018 she moved to [facility]. Follow-up CT PET scan done on 02/23/2019 showed there are multiple bilateral malignant pulmonary nodules, predominantly in the upper lobes, representing active metastatic disease. Index right upper lobe nodule measuring 1.5 x 1.9 cm with SUV of 21 and index medial left upper lobe nodule measures 1.5 cm in diameter and has SUV of 17.3. No other abnormality seen It was recommended that Mrs Lopez continue with nivolumab , biweekly. But patient never came back- as per patient she had transportation problem as she could not get new tag for her car and she was called and at that time our office was informed that she is not interested to continue immunotherapy but preferred observation. Follow-up CT scan of chest abdomen pelvis was done on 09/13/2019 as insurance did not allow PET scan. It showed numerous large metastatic nodules in both lungs progressed since prior examinations. Large markedly progressed left upper lobe mass measures 6.1 x 4.7 cm. Progressed left lower lobe nodule measuring 3.1 x 2.6 cm compared to 8 mm previously. Large lobulated right upper lobe nodule measures 4.4 x 2.2 cm. Large right upper lobe partially cavitating nodule abutting middle mediastinum has markedly progress size 4.1 x 2.6 cm. Additionally large left upper lobe medially measuring 2.9 x 2.5 cm. Liver is normal. No other changes seen and abdomen.started on palliative chemotherapy with single agent Abraxane on 10/07/2019, chemotherapy was put on hold during radiation therapy to lumbar spine starting 11/12/2019 till 11/26/2019 Patient developed severe back pain for which she was evaluated and [facility] underwent CT scan of lumbar spine which shows L4 vertebral metastases and questionable L1 involvement too, ER physician discussed her case with Dr. Ya neurosurgery was recommended radiation therapy and patient underwent radiation therapy to lumbar spine from 11/12/2019 till 11/26/2019 Came for follow-up today, still complaining of severe lower back pain, radiation didn't help her much . As per patient with lifting of left leg, there is a worsening of lower back pain, denies any trauma, denies any urine or stool incontinence, denies any numbness in lower extremity patient said hydrocodone alone is not enough. And sometimes get frustrated and had thoughts of hurting herself. Otherwise no fever or chills, no nausea or vomiting, no diarrhea constipation. . Medications: Allergy Relief 1 (4 mg) Tablet Oral daily, Aspirin 1 Tablet (of 81 mg) Oral daily, Biotin 1 Capsule (of 1000 mg) Oral daily, Centrum Silver 50+Women 1 Tablet Oral daily, HYDROcodone-Acetaminophen 1 Tablet (of 10-325 mg) Oral t.i.d. PRN, Metoprolol Tartrate 1 Tablet (of 50 mg) Oral b.i.d., oxyCODONE HCl 0.5 Capsule (of 5 mg) Oral PRN, Prochlorperazine Maleate 1 Tablet (of 10 mg) Oral q 4 hours PRN, Sertraline HCl 1 Tablet (of 50 mg) Oral daily Allergies: Ampicillin, Cetuximab, Penicillins, and Sulfa Antibiotics. Review of Systems: Review of Systems is not available for this patient. Vital Signs: Performed on Dec 11, 2019 15:39 Height - 66.00 in Weight - 135.4 lbs (LOW) BSA - 1.69 sq.m BMI - 21.85 Temperature - 98.1 F (LOW) Pulse - 83 /min Respiration - 18 /min BP - 141/60 mm(hg) (HIGH) O2 Sat - 95 % (LOW) Pain - 8 Performance Status: 2 - Ambulatory/capable of all self-care, unable to perform any work activities. Up and about more than 50% of waking hours. (ECOG) Physical Examination: ENMT - no mouth sores or thrush, Respiratory - Lungs are clear, Cardiovascular - Regular rate and rhythm of heart, Abdomen - soft, bowel sounds present, Extremities - no visible edema. Lab/Imaging: Test performed on Dec 09, 2019 09:08 Glucose 202 mg/dL BUN 13 mg/dL Creatinine 0.63 mg/dL Cr Clearance (Est) 89.95 mL/min Sodium 141 mmol/L Potassium 3.4 mmol/L Chloride 95 mmol/L CO2 31 mmol/L Calcium 9.7 mg/dL Protein, Total 5.7 g/dL Albumin 3.3 g/dL Bilirubin, Total 0.3 mg/dL Alkaline Phosphatase 223 IU/L AST (SGOT) 31 IU/L ALT (SGPT) 19 IU/L WBC 5.4 10^9/L RBC 3.40 10^12/L HGB 10.2 g/dL HCT 31.2 % MCV 91.8 fl MCH 30 pg MCHC 32.7 g/dL RDW 14.3 % Platelet Count 193 10^9/L MPV 10.4 fL Test performed on Nov 06, 2019 09:38 Anion Gap 15.8 eGFR 123.4 mL/min Globulin 2.7 g/dL Neutrophils 3.4 10 3/uL Lymphocytes 1.4 10 3/uL Monocytes 0.6 10 3/uL Eosinophils 0.1 10 3/uL Basophils 0.1 10 3/uL Neutrophil % 61.6 % Lymphocyte % 24.7 % Monocyte % 10.2 % Eosinophil % 2.0 % Basophils % 1.1 % Test performed on Oct 21, 2019 11:35 Ua Micro: Hyaline Casts 0-4 Ua Micro: WBC 0-4 /hpf Ua Micro: RBC NONE /hpf Ua Micro: Squam Epith Cells 0-4 Ua Micro: Bacteria 1+ Impression: 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 CT PET scan done the time of diagnosis in March 2018 consistent with disease from BOT/vallecule and biopsy from left anterior neck lymph node showed non-small cell carcinoma and biopsy of right upper lobe lung done on 03/30/2018 confirmed poorly differentiated squamous cell carcinoma Status post combined chemoradiation therapy to the oropharynx primary and left cervical metastatic lymph node, initially started on low-dose cisplatin/erbitux but erbitux was discontinued because of related allergic reaction requiring short hospital stay Later on switched to weekly carboplatin concurrent with radiation therapy on 05/24/2018, 05/31/2018 and 06/07/2018 and radiotherapy completed on 07/12/2018 CT scan of neck was done on 07/23/2018 showed left neck mass size is similar but too early to really to perry radiation impact and CT scan of chest showed multiple lung nodules largest being 2 cm size, stable with one new and 2 small enlarging nodules all less than 1 cm. Follow-up CT scan of chest done on 09/05/2018 showed slow progression of pulmonary disease, but patient remained asymptomatic at that time role of immunotherapy with nivolumab was discussed and patient agreed, she was started on every other week later on switched to every month, as per patient last dose was given in October that time her follow-up CT scan of chest done on 11/08/2018 showed mixed response e.g. enlargement of right lung metastases, as per patient she was referred to radiation oncology and she received 15 doses of radiation to right chest Follow-up CT PET scan done on 02/23/2019 showed there are multiple bilateral malignant pulmonary nodules, predominantly in the upper lobes, representing active metastatic disease. An index right upper lobe nodule measured 1.5 x 1.9 cm with SUV of 21, and index medial left upper lobe nodule measuring 1.5 cm in diameter has SUV of 17.3. 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 Treatment options include either: continue with nivolumab ( but concerning as her initial scan after she was started on nivolumab showed mixed response and then patient continued immunotherapy for some time and then stopped on her own more than 6 months ago). Another option was to consider another immunotherapy drug pembrolizumab but not sufficient data to prove whether it is effective if patient progressed done another immunotherapy. The third option was consider chemotherapy plus immunotherapy e.g. pembrolizumab plus carboplatin/5-FU or Taxol but patient is reluctant to consider multiple drugs because of her past experience with the chemotherapy. The last option considered was chemotherapy alone- doublet versus single agent but patient agreed for single agent so we will consider Abraxane 100 mg weekly day 1, 8 and 15 and repeat 28 days. The current plan is to give [address] scan if this is response then continue if stable disease then add pembrolizumab. Plan: Discussed with patient regarding her labs white blood count 5.4 hemoglobin 10.2 hematocrit 31.2 platelets 193,000 CMP within normal limits Clinically, patient is in [id number] distress due to persistent lower back pain, recently finished radiation therapy to the lumbar spine, as per patient did not help her much. And pain is aggravated by lifting left leg up, she could have disc prolapse or unstable vertebra, at this point we'll refer her to Dr. Ya, neurosurgery for evaluation. In the meantime we will add long-acting morphine 15 mg by mouth every 12 hours and then she'll continue with hydrocodone for breakthrough and patient will return to clinic in 2 weeks with CBC CMP, if pain improves, may consider restarting her on weekly Abraxane. Also discuss about role of hospice, patient is not ready yet. Patient was advised in case there is a worsening of pain or urine or stool incontinence she needed to go to hospital immediately. Signed By: Ivon Johnston M.D. <<Signature on File>>
== END 2019-12-12 23:59 | disposition home or self-care (01) ==
LOC: ONCMED 06:40
PROVIDERS: Family Provider Family Medicine; PCP Family Medicine; Visit Provider Internal Medicine Hematology & Oncology
DX: Z51.0 Encounter for antineoplastic radiation therapy (principal); C76.0 Malignant neoplasm of head, face and neck; C77.0 Secondary and unspecified malignant neoplasm of lymph nodes of head, face and neck; C79.51 Secondary malignant neoplasm of bone; C78.01 Secondary malignant neoplasm of right lung; C78.02 Secondary malignant neoplasm of left lung; G89.3 Neoplasm related pain (acute) (chronic); J43.9 Emphysema, unspecified; F17.200 Nicotine dependence, unspecified, uncomplicated; I25.10 Atherosclerotic heart disease of native coronary artery without angina pectoris; F32.9 Major depressive disorder, single episode, unspecified; Z79.899 Other long term (current) drug therapy; Z79.891 Long term (current) use of opiate analgesic; Z79.82 Long term (current) use of aspirin; Z95.5 Presence of coronary angioplasty implant and graft
CPT/HCPCS: 70250; 77336; 77387; 77412; 78306; 99214; A9561